=== PATIENT | male | born 1965 | race Caucasian/White ===

== ENCOUNTER 2017-02-26 19:56 | Emergency (ER) | payer SELFPAY ==
--- NOTE | 2017-02-26 20:09 | EDM.PDOC ---
ED HPI GENERAL MEDICAL PROBLEM - General Chief Complaint: Abdominal Pain Stated Complaint: NO BOWEL MOVEMENT IN A WEEK Time Seen by Provider: 02/26/17 20:04 - History of Present Illness INITIAL COMMENTS - FREE TEXT/NARRATIVE: HISTORY AND PHYSICAL: History of present illness: Patient is 51-year-old white male presents with a concern of constipation he states he's had 2 small bowel movements and last week he's had a similar problem in the past he also suffers from hemorrhoids he had 1 follow-up on his prior episode but then was lost to any more definitive coordination of care subsequent. He denies fever chills nausea vomiting no abdominal surgery he has had knee surgery prior. He denies pain medication he is a smoker denies drug or alcohol abuse Review of systems: As per history of present illness and below otherwise all systems reviewed and negative. Past medical history: As per history of present illness and as reviewed below otherwise noncontributory. Surgical history: As per history of present illness and as reviewed below otherwise noncontributory. Social history: No reported history of drug or alcohol abuse. Family history: As per history of present illness and as reviewed below otherwise noncontributory. Physical exam: HEENT: Atraumatic, normocephalic, pupils reactive, negative for conjunctival pallor or scleral icterus, mucous membranes moist, throat clear, neck supple, nontender, trachea midline. Lungs: Clear to auscultation, breath sounds equal bilaterally, chest nontender. Heart: S1S2, regular, negative for clicks, rubs, or JVD. Abdomen: Soft, nondistended, no localized tenderness. Negative for masses or hepatosplenomegaly. Negative for costovertebral tenderness. Pelvis: Stable nontender. Genitourinary: Deferred. Rectal: Deferred. Extremities: Atraumatic, negative for cords or calf pain. Neurovascular unremarkable. Neuro: Awake, alert, oriented. Cranial nerves II through XII unremarkable. Cerebellum unremarkable. Motor and sensory unremarkable throughout. Exam nonfocal. Diagnostics: Acute abdominal series CBC CMP Therapeutics: To be determined Impression: #1 constipation Definitive disposition and diagnosis as appropriate pending reevaluation and review of above. abdominal area Pain Score (Numeric/FACES): 4 - Related Data Allergies Allergy/AdvReac Type Severity Reaction Status Date / Time No Known Allergies Allergy Verified 02/26/17 19:59 Home Meds: Home Meds . [No Known Home Meds] 02/26/17 [History] Past Medical History HEENT History: Reports: None Cardiovascular History: Reports: None Respiratory History: Reports: None Gastrointestinal History: Reports: Other (See Below) Other Gastrointestinal History: Abdominal Blockage Genitourinary History: Reports: None Musculoskeletal History: Reports: None Neurological History: Reports: None Psychiatric History: Reports: None Endocrine/Metabolic History: Reports: None Hematologic History: Reports: None Immunologic History: Reports: None Oncologic (Cancer) History: Reports: None Dermatologic History: Reports: None - Infectious Disease History Infectious Disease History: Reports: Shingles - Past Surgical History Head Surgeries/Procedures: Reports: None Musculoskeletal Surgical History: Reports: Other (See Below) Other Musculoskeletal Surgeries/Procedures:: both knee Social & Family History - Family History Family Medical History: Noncontributory - Tobacco Use Smoking Status *Q: Current Every Day Smoker Years of Tobacco use: 30 Packs/Tins Daily: 1 - Caffeine Use Caffeine Use: Reports: Coffee - Recreational Drug Use Recreational Drug Use: Yes Drug Use in Last 12 Months: Yes Recreational Drug Type: Reports: Marijuana/Hashish ED ROS GENERAL - Review of Systems Review Of Systems: ROS reveals no pertinent complaints other than HPI. ED EXAM, GENERAL - Physical Exam Exam: See Below (See dictation) Course - Vital Signs Last Recorded V/S: Last Vital Signs Temp 36.1 C 02/26/17 20:00 Pulse 112 H 02/26/17 20:00 Resp 18 02/26/17 20:00 BP 120/90 02/26/17 20:00 Pulse Ox 98 02/26/17 20:00 - Orders/Labs/Meds Orders: Active Orders 24 hr Category Date Time Status Acute Abdomen Series [Abdomen 2V AP Upright Decub] [CR] Exams 02/26/17 20:11 Taken Stat Labs: Laboratory Tests 02/26/17 02/26/17 Range/Units 20:16 20:16 WBC 9.57 (4.0-11.0) K/uL RBC 4.59 (4.50-5.90) M/uL Hgb 14.7 (13.0-17.0) g/dL Hct 42.4 (38.0-50.0) % MCV 92.4 (80.0-98.0) fL MCH 32.0 (27.0-32.0) pg MCHC 34.7 (31.0-37.0) g/dL RDW Std Deviation 45.0 (28.0-62.0) fl RDW Coeff of Francois 13 (11.0-15.0) % Plt Count 381 (150-400) K/uL MPV 8.40 (7.40-12.00) fL Neut % (Auto) 50.8 (48.0-80.0) % Lymph % (Auto) 36.4 (16.0-40.0) % Cascade % (Auto) 9.4 (0.0-15.0) % Eos % (Auto) 2.9 (0.0-7.0) % Baso % (Auto) 0.5 (0.0-1.5) % Neut # (Auto) 4.9 (1.4-5.7) K/uL Lymph # (Auto) 3.5 H (0.6-2.4) K/uL Cascade # (Auto) 0.9 H (0.0-0.8) K/uL Eos # (Auto) 0.3 (0.0-0.7) K/uL Baso # (Auto) 0.1 (0.0-0.1) K/uL Nucleated RBC % 0.0 /100WBC Nucleated RBCs # 0 K/uL Sodium 139 (136-146) mmol/L Potassium 4.4 (3.5-5.1) mmol/L Chloride 105 (98-110) mmol/L Carbon Dioxide 25 (21-31) mmol/L BUN 15 (6.0-23.0) mg/dL Creatinine 1.1 (0.6-1.5) mg/dL Est Cr Clr Drug Dosing 80.19 mL/min Estimated GFR (MDRD) > 60.0 ml/min Glucose 116 H (60-110) mg/dL Calcium 11.1 H (8.8-10.8) mg/dL Total Bilirubin 0.3 (0.1-1.5) mg/dL AST 22 (5-40) IU/L ALT 25 (8-54) IU/L Alkaline Phosphatase 103 (40-150) Total Protein 7.6 (6.0-8.0) g/dL Albumin 4.2 (3.5-5.0) g/dL Globulin 3.4 (2.0-3.5) g/dL Albumin/Globulin Ratio 1.2 L (1.3-2.8) Departure - Departure Time of Disposition: 21:34 Disposition: Home, Self-Care 01 Condition: Good Clinical Impression: Constipation - Discharge Information Forms: ED Department Discharge Additional Instructions: The following information is given to patients seen in the emergency department who are being discharged to home. This information is to outline your options for follow-up care. We provide all patients seen in our emergency department with a follow-up referral. The need for follow-up, as well as the timing and circumstances, are variable depending upon the specifics of your emergency department visit. If you don't have a primary care physician on staff, we will provide you with a referral. We always advise you to contact your personal physician following an emergency department visit to inform them of the circumstance of the visit and for follow-up with them and/or the need for any referrals to a consulting specialist. The emergency department will also refer you to a specialist when appropriate. This referral assures that you have the opportunity for followup care with a specialist. All of these measure are taken in an effort to provide you with optimal care, which includes your followup. Under all circumstances we always encourage you to contact your private physician who remains a resource for coordinating your care. When calling for followup care, please make the office aware that this follow-up is from your recent emergency room visit. If for any reason you are refused follow-up, please contact the [facility] emergency department at and asked to speak to the emergency department charge nurse. [facility] Specialty Care - General Surgery Professional Building [address] [place] [address], [address] [place] [address] Push fluids clear liquids as discussed stool softener as directed fiber as directed follow primary medical doctor 1-2 days and return as needed as discussed routine surgery follow-up as needed as discussed - My Orders Last 24 Hours: My Active Orders 02/26/17 20:11 Acute Abdomen Series [Abdomen 2V AP Upright Decub] [CR] Stat - Assessment/Plan Last 24 Hours: My Active Orders 02/26/17 20:11 Acute Abdomen Series [Abdomen 2V AP Upright Decub] [CR] Stat
[2017-02-26 20:47] LABS: CHLORIDE,CL 105 mmol/L (98-110); SODIUM,NA 139 mmol/L (136-146)
[2017-02-26 22:02] VITALS: BP 119/93
--- NOTE | 2017-02-28 15:17 | CR ---
EXAM DATE: 02/26/17 PATIENT'S AGE: 51 Patient: GURVINDER RYDER Facility: [place], [place] Site . Site : 1965 Study: XRay Abdomen W PA CHEST [id number]/9/[id number] 8:38:08 PM Ordering Physician: Jorge Luis Hsu Final Report: INDICATION: ABDOMINAL PAIN AND CONSTIPATION FOR 7 DAYS TECHNIQUE: Chest radiograph 1 view Abdominal radiographs 4 views COMPARISON: None FINDINGS: CHEST: Cardiovascular and mediastinum: The heart silhouette is normal in size and morphology. The mediastinum is normal in appearance. Lungs and pleural spaces: There are several small nodules in the right lung base measuring up to 6 mm. No sign of pleural effusion seen. No pneumothorax is identified. Bones and soft tissues: No significant findings. ABDOMEN: The study is moderately limited by body habitus. Bowel: The bowel gas pattern is normal without evidence of bowel obstruction. Soft tissues: No evidence of pneumoperitoneum present. No sign of soft tissue mass seen. No suspicious calcifications noted. Bones: Unremarkable for age. IMPRESSIONS: 1. Unremarkable radiographs of the abdomen. 2. There are several small nodules in the right lung base measuring up to 6 mm. Dictated by: Lang Epperson MD @ 02/26/2017 21:18:28 (Electronic Signature) Report Signed by Proxy. RODRIGO
== END 2017-02-26 21:48 | disposition home or self-care (01) ==
LOC: MW.ED 19:56
DX: K59.00 Constipation, unspecified (principal); F17.210 Nicotine dependence, cigarettes, uncomplicated
CPT/HCPCS: 36415; 74022; 74022-26; 80053; 85025; 99282; 99283

== ENCOUNTER 2017-04-30 14:37 | Emergency (ER) | payer SELFPAY ==
[2017-04-30] MEDS ORDERED: Ketorolac 30 MG/ML SDV IVPUSH ONE (14:59)
[2017-04-30] MEDS ORDERED: Alum Hydrox/Mag Hydrox/Simeth 15 ML, Metoclopramide 5 MG, Lidocaine 2% 5 ML PO ONE ×3 (14:59)
[2017-04-30] MEDS ORDERED: Aspirin 81 MG Tab.Chew PO ONE (14:59)
[2017-04-30] MEDS ORDERED: Famotidine 20 MG/2 ML SDV IVPUSH ONE (14:59)
--- NOTE | 2017-04-30 15:29 | EDM.PDOC ---
ED HPI GENERAL MEDICAL PROBLEM - General Chief Complaint: General Stated Complaint: NECK PAIN Time Seen by Provider: 04/30/17 15:00 Source of Information: Reports: Patient History Limitations: Reports: No Limitations - History of Present Illness INITIAL COMMENTS - FREE TEXT/NARRATIVE: History of present illness: [51-year-old male comes in complaining of neck pain. As well as feeling that he is possibly stroking out according to his chiropractor. Patient indicates that this all originates from his neck radiating into his chest and makes him feel like he is going to vomit. Patient is hypertensive on presentation but the longer he stays in the ED for more his blood pressure just to midline.] Review of systems: As per history of present illness and below otherwise all systems reviewed and negative. Past medical history: As per history of present illness and as reviewed below otherwise noncontributory. Surgical history: As per history of present illness and as reviewed below otherwise noncontributory. Social history: No reported history of drug or alcohol abuse. Family history: As per history of present illness and as reviewed below otherwise noncontributory. Physical exam: HEENT: Atraumatic, normocephalic, pupils reactive, negative for conjunctival pallor or scleral icterus, mucous membranes moist, throat clear, neck supple, nontender, trachea midline. Lungs: Clear to auscultation, breath sounds equal bilaterally, chest nontender. Heart: S1S2, regular, negative for clicks, rubs, or JVD. Abdomen: Soft, nondistended, nontender. Negative for masses or hepatosplenomegaly. Negative for costovertebral tenderness. Pelvis: Stable nontender. Genitourinary: Deferred. Rectal: Deferred. Extremities: Atraumatic, negative for cords or calf pain. Neurovascular unremarkable. Neuro: Awake, alert, oriented. Cranial nerves II through XII unremarkable. Cerebellum unremarkable. Motor and sensory unremarkable throughout. Exam nonfocal. Assessment is benign save the subjective complaint as noted in history of present illness. Diagnostics: [X-ray of cervical spine, CBC, CMP, tox screen] Therapeutics: [] Impression: [#1 neck pain #2 polysubstance abuse] Plan: [Follow-up with PCP] Definitive disposition and diagnosis as appropriate pending reevaluation and review of above. Neck Pain Score (Numeric/FACES): 8 - Related Data Allergies Allergy/AdvReac Type Severity Reaction Status Date / Time No Known Allergies Allergy Verified 04/30/17 14:52 Home Meds: Home Meds . [No Known Home Meds] 02/26/17 [History] Past Medical History HEENT History: Reports: None Cardiovascular History: Reports: None Respiratory History: Reports: None Gastrointestinal History: Reports: Other (See Below) Other Gastrointestinal History: Abdominal Blockage Genitourinary History: Reports: None Musculoskeletal History: Reports: None Neurological History: Reports: None Psychiatric History: Reports: None Endocrine/Metabolic History: Reports: None Hematologic History: Reports: None Immunologic History: Reports: None Oncologic (Cancer) History: Reports: None Dermatologic History: Reports: None - Infectious Disease History Infectious Disease History: Reports: Shingles - Past Surgical History Head Surgeries/Procedures: Reports: None Musculoskeletal Surgical History: Reports: Other (See Below) Other Musculoskeletal Surgeries/Procedures:: both knee Social & Family History - Family History Family Medical History: Noncontributory - Tobacco Use Smoking Status *Q: Current Every Day Smoker Years of Tobacco use: 25 Packs/Tins Daily: 1 - Caffeine Use Caffeine Use: Reports: None - Recreational Drug Use Recreational Drug Use: Yes Drug Use in Last 12 Months: Yes Recreational Drug Type: Reports: Marijuana/Hashish Recreational Drug Use Frequency: Daily ED ROS GENERAL - Review of Systems Review Of Systems: See Below (See history of present illness) ED EXAM, GENERAL - Physical Exam Exam: See Below (See history of present illness) Course - Vital Signs Last Recorded V/S: Last Vital Signs Temp 36.4 C 04/30/17 14:47 Pulse 100 04/30/17 14:47 Resp 20 04/30/17 14:47 BP 119/86 04/30/17 14:53 Pulse Ox 97 04/30/17 14:47 - Orders/Labs/Meds Orders: Active Orders 24 hr Category Date Time Status EKG Documentation Completion [RC] STAT Care 04/30/17 14:59 Ordered Cervical Spine 2V or 3V [CR] Stat Exams 04/30/17 15:00 Ordered Chest 2V [CR] Stat Exams 04/30/17 14:59 Ordered AMYLASE [CHEM] Stat Lab 04/30/17 14:59 Ordered CBC WITH AUTO DIFF [HEME] Stat Lab 04/30/17 14:59 Ordered COMPREHENSIVE METABOLIC PN,CMP [CHEM] Stat Lab 04/30/17 14:59 Ordered LIPASE [CHEM] Stat Lab 04/30/17 14:59 Ordered TROPONIN I [CHEM] Stat Lab 04/30/17 14:59 Ordered Saline Lock Insert [OM.PC] Stat Oth 04/30/17 14:59 Ordered Meds: Medications Discontinued Medications Generic Name Dose Route Start Last Admin Trade Name Liss PRN Reason Stop Dose Admin Aspirin 324 mg 04/30/17 14:59 04/30/17 15:14 Aspirin PO 04/30/17 15:00 324 mg ONETIME ONE Administration Al Hydroxide/Mg Hydroxide 15 0 ml 04/30/17 14:59 ml/ Metoclopramide HCl 5 mg/ PO 04/30/17 15:00 Lidocaine HCl 5 ml ONETIME ONE Famotidine 20 mg 04/30/17 14:59 Pepcid IVPUSH 04/30/17 15:00 ONETIME ONE Ketorolac Tromethamine 30 mg 04/30/17 14:59 Toradol IVPUSH 04/30/17 15:00 ONETIME ONE Departure - Departure Time of Disposition: 17:02 Disposition: Home, Self-Care 01 Condition: Good Clinical Impression: Neck pain, Polysubstance abuse - Discharge Information Referrals: PCP,None [Primary Care Provider] - Additional Instructions: The following information is given to patients seen in the emergency department who are being discharged to home. This information is to outline your options for follow-up care. We provide all patients seen in our emergency department with a follow-up referral. The need for follow-up, as well as the timing and circumstances, are variable depending upon the specifics of your emergency department visit. we will provide you with a referral. We always advise you to contact your personal physician following an emergency department visit to inform them of the circumstance of the visit and for follow-up with them and/or the need for any referrals to a consulting specialist. The emergency department will also refer you to a specialist when appropriate. This referral assures that you have the opportunity for follow-up care with a specialist. All of these measure are taken in an effort to provide you with optimal care, which includes your follow-up. Under all circumstances we always encourage you to contact your private physician who remains a resource for coordinating your care. When calling for follow-up care, please make the office aware that this follow-up is from your recent emergency room visit. If for any reason you are refused follow-up, please contact the [facility] Emergency Department at and asked to speak to the emergency department charge nurse. Follow-up PCP 1-2 days Return to ED as needed as discussed Stop taking drugs - My Orders Last 24 Hours: My Active Orders 04/30/17 14:59 EKG Documentation Completion [RC] STAT Chest 2V [CR] Stat AMYLASE [CHEM] Stat CBC WITH AUTO DIFF [HEME] Stat COMPREHENSIVE METABOLIC PN,CMP [CHEM] Stat LIPASE [CHEM] Stat TROPONIN I [CHEM] Stat Saline Lock Insert [OM.PC] Stat 04/30/17 15:00 Cervical Spine 2V or 3V [CR] Stat - Assessment/Plan Last 24 Hours: My Active Orders 04/30/17 14:59 EKG Documentation Completion [RC] STAT Chest 2V [CR] Stat AMYLASE [CHEM] Stat CBC WITH AUTO DIFF [HEME] Stat COMPREHENSIVE METABOLIC PN,CMP [CHEM] Stat LIPASE [CHEM] Stat TROPONIN I [CHEM] Stat Saline Lock Insert [OM.PC] Stat 04/30/17 15:00 Cervical Spine 2V or 3V [CR] Stat
[2017-04-30 15:38] LABS: CHLORIDE,CL 103 mmol/L (98-110); SODIUM,NA 136 mmol/L (136-146)
[2017-04-30] MEDS ORDERED: Sodium Chloride 0.9% 1,000 ML IV ONE (15:44)
[2017-04-30 17:16] VITALS: BP 155/100
--- NOTE | 2017-05-02 12:22 | CR ---
EXAM DATE: 04/30/17 PATIENT'S AGE: 51 Patient: GURVINDER RYDER Facility: [place], [place] Site . Site : 1965 Study: XRay Chest [id number]/11/2017 3:29:09 PM Ordering Physician: Doctor Meyer Final Report: INDICATION: Pain TECHNIQUE: Two view chest. FINDINGS: The lungs are clear. The heart, mediastinum and pulmonary vessels are of normal size. There is no evidence of pleural disease. IMPRESSION: Negative chest. Dictated by Cheryle Alcazar MD @ Apr 30 2017 3:53PM (Electronic Signature) Report Signed by Proxy. RODRIGO
--- NOTE | 2017-05-02 12:24 | CR ---
EXAM DATE: 04/30/17 PATIENT'S AGE: 51 Patient: GURVINDER RYDER Facility: [place], [place] Site . Site : 1965 Study: XRay Spine Cervical [id number]/11/2017 3:37:09 PM Ordering Physician: Doctor Meyer Final Report: HISTORY: Neck pain. TECHNIQUE: Four views of the cervical spine. COMPARISON: No prior. FINDINGS: The lower aspect of the cervical spine is not well seen secondary to overlap the shoulders and despite a swimmer`s projection. The cervical vertebral body height within the visualized portion of the cervical spine is maintained. There is loss of intervertebral disc height at C3-C4 with slight posterior listhesis of C3 on C4. Degenerative disc disease at that level. The dens appears intact. Normal articulation of lateral masses of C1 and C2. No abnormal prevertebral soft tissue swelling. IMPRESSION: 1. The lower cervical spine, specifically the C6 and C7 levels, are poorly evaluated secondary to soft tissue overlap from the shoulders and despite a swimmer`s projection. If lower cervical pathology is suspected based on physical examination findings, CT could be obtained for further evaluation. 2. No acute fracture within the visualized portion of the mid to upper cervical spine. 3. Degenerative changes. Dictated by Hema Lee MD @ 04/30/2017 3:58:58 PM Dictated by: Hema Lee MD @ 04/30/2017 15:59:06 (Electronic Signature) Report Signed by Proxy. RODRIGO
== END 2017-04-30 17:14 | disposition home or self-care (01) ==
LOC: MW.ED 14:37
DX: M54.2 Cervicalgia (principal); F19.10 Other psychoactive substance abuse, uncomplicated; F17.210 Nicotine dependence, cigarettes, uncomplicated
CPT/HCPCS: 36415; 71020; 72040; 80053; 80305; 82150; 83690; 84484; 85025; 93005; 96361; 96374; 96375; 99284; A9270; J1885; J7040; 99283

== ENCOUNTER 2019-06-27 16:50 | Observation (INO) | payer OTHER ==
[2019-06-27] MEDS ORDERED: Isosorbide Mononitrate 60 MG Tab.ER PO SCH (17:45)
[2019-06-27] MEDS ORDERED: Albuterol/Ipratropium 3.0-0.5 MG/3 ML Neb Soln NEB PRN (17:50)
[2019-06-27] MEDS ORDERED: Heparin Sodium 5,000 Units/ML Vial IVPUSH SCH (18:00)
[2019-06-27] MEDS ORDERED: Furosemide 40 MG/4 ML VIAL IVPUSH SCH (18:00)
--- NOTE | 2019-06-27 18:05 | PCM.HP.2 ---
<Norma Pettit - Last Filed: 06/29/19 14:20> H&P History of Present Illness - General Date of Service: 06/27/19 Admit Problem/Dx: Admission Diagnosis/Problem Admission Diagnosis/Problem Heart failure due to high blood pressure Source of Information: Patient History Limitations: Reports: No Limitations - History of Present Illness Initial Comments - Free Text/Narative: Pt. is a 53-year-old male with a significant past medical history of uncontrolled hypertension on numerous medications, tobacco abuse x30 years, obesity: Presenting to medical floor as a direct admission secondary to concerns for congestive heart failure. He was initially seen in outpatient cardiology for worsening hypertension and increasing shortness of breath with rest and lower extremity swelling .patient for the past 6 months endorses increasing shortness of breath; mentioning not being able to walk more than 1-2 blocks before developing shortness of breath with sweating; and over the past 2 to 3 months has noticed increased swelling of the face, abdomen and most notably in the lower extremities. Patient currently denies any fevers, chills, body aches, chest pain; but does endorse some mild shortness of breath at rest. Patient denies any diarrhea but mentions having some constipation; endorses a bowel movement this morning but states constipation has been an ongoing issue and he has been seen in the ER for this. Patient endorses compliance with his medications for the most part; and has been trying to cut down on the amount of tobacco use. 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 Denies any other overt or acute symptomatology at this time. - Related Data Allergies/Adverse Reactions: Allergies Allergy/AdvReac Type Severity Reaction Status Date / Time No Known Allergies Allergy Verified 06/27/19 17:25 Home Medications: Home Meds Albuterol Sulfate [Proair Hfa] 8.5 gm IH Q4H PRN 14 Days #1 [email or web address] 06/30/19 [Rx] Furosemide [Lasix] 40 mg PO BID 30 Days #60 tab 06/30/19 [Rx] Isosorbide Mononitrate [Imdur] 30 mg PO DAILY 30 Days #30 tab.er 06/30/19 [Rx] Magnesium Oxide [Magnesium] 200 mg PO DAILY 10 Days #10 tab.chew 06/30/19 [Rx] Pantoprazole [ProTONIX] 40 mg PO DAILY 14 Days #14 tab.cr 06/30/19 [Rx] Valsartan 320 mg PO DAILY 30 Days #30 tablet 06/30/19 [Rx] Past Medical History HEENT History: Reports: None Cardiovascular History: Reports: None Respiratory History: Reports: SOB Gastrointestinal History: Reports: None, Other (See Below) Other Gastrointestinal History: Abdominal Blockage Genitourinary History: Reports: None Musculoskeletal History: Reports: None Neurological History: Reports: None Psychiatric History: Reports: Addiction, Depression Other Psychiatric History: Year ago when this stared. Endocrine/Metabolic History: Reports: None Hematologic History: Reports: None Immunologic History: Reports: None Oncologic (Cancer) History: Reports: None Dermatologic History: Reports: None - Infectious Disease History Infectious Disease History: Reports: Measles, Shingles - Past Surgical History Head Surgeries/Procedures: Reports: None HEENT Surgical History: Reports: None Cardiovascular Surgical History: Reports: None Respiratory Surgical History: Reports: None GI Surgical History: Reports: None Male Surgical History: Reports: None Neurological Surgical History: Reports: None Musculoskeletal Surgical History: Reports: None, Other (See Below) Other Musculoskeletal Surgeries/Procedures:: both knee ACL Oncologic Surgical History: Reports: None Social & Family History - Family History Family Medical History: Noncontributory - Tobacco Use Smoking Status *Q: Current Every Day Smoker Years of Tobacco use: 30 Packs/Tins Daily: 1 Used Tobacco, but Quit: No Second Hand Smoke Exposure: No - Caffeine Use Caffeine Use: Reports: Coffee, Tea - Recreational Drug Use Recreational Drug Use: Yes Drug Use in Last 12 Months: Yes Recreational Drug Type: Reports: Cocaine, Marijuana/Hashish, Methamphetamine Recreational Drug Use Frequency: Daily Recreational Drug Last Use: 06/27/2019 H&P Review of Systems - Review of Systems: Review Of Systems: See Below General: Reports: Weight Gain. Denies: Fever, Chills, Malaise, Fatigue, Diaphoresis HEENT: Reports: No Symptoms Pulmonary: Reports: Shortness of Breath, Cough. Denies: Wheezing, Pleuritic Chest Pain, Sputum, Hemoptysis Cardiovascular: Reports: Dyspnea on Exertion, Edema, Blood Pressure Problem. Denies: Chest Pain, Palpitations, Orthopnea, Lightheadedness, Syncope Gastrointestinal: Reports: Constipation. Denies: Abdominal Pain, Diarrhea, Decreased Appetite, Nausea, Vomiting Genitourinary: Denies: Dysuria, Frequency, Burning, Pain, Urgency Musculoskeletal: Reports: No Symptoms Skin: Reports: No Symptoms. Denies: Rash Psychiatric: Denies: Confusion, Anxiety Neurological: Denies: Confusion, Dizziness, Headache, Syncope Exam - Exam Exam: See Below - Vital Signs Weight: 99 kg - Exam General: Alert, Oriented, Cooperative HEENT: EOMI, Posterior Pharynx Clear Neck: Supple, Trachea Midline Lungs: Other (crackles at bases b/l; faint wheeze in left upper lung field ) Cardiovascular: Regular Rhythm, Tachycardia, Other (minimal JVD appreciated ) GI/Abdominal Exam: Soft, Non-Tender, Other (no fluid wave appreciated ) (Male) Exam: Circumcised. No: Rash, Scrotal Swelling Back Exam: No: CVA Tenderness (L), CVA Tenderness (R) Extremities: Normal Range of Motion, Non-Tender, Other (+3/4 pitting edema extending to just below knees b/l ; no tenderness, no skin breakdown. ) Skin: Warm, Dry Neuro Extensive - Mental Status: Alert, Oriented x3, Normal Mood/Affect Neuro Extensive - Motor, Sensory, Reflexes: CN II-XII Intact Psychiatric: Alert, Normal Mood - Patient Data Result Diagrams: 06/29/19 08:11 06/29/19 08:11 Sepsis Event Note - Evaluation Sepsis Screening Result: No Definite Risk Problem List Initiated/Reviewed/Updated: Yes Orders Last 24hrs: Active Orders 24 hr Category Date Time Status Admission Status [Patient Status] [ADT] Routine ADT 06/27/19 17:34 Active Daily Weight [Height and Weight] [] DAILY Care 06/27/19 17:48 Active EKG 12 Lead [EKG Documentation Completion] [RC] URGENT Care 06/27/19 17:33 Active Intake and Output Strict [RC] ASDIRECTED Care 06/27/19 17:48 Active RT Aerosol Therapy [RC] ASDIRECTED Care 06/27/19 17:50 Active Up ad Lucy [RC] ASDIRECTED Care 06/27/19 17:31 Active Fluid Restriction [DIET] Diet 06/28/19 Breakfast Active Sodium Restricted Diet [DIET] Diet 06/28/19 Breakfast Active Echo Comp wo Cont [US] Urgent Exams 06/27/19 17:31 Ordered B-TYPE NATRIURETIC PEPTIDE,BNP [CHEM] AM Lab 06/28/19 05:11 Ordered CBC WITH AUTO DIFF [HEME] AM Lab 06/28/19 05:11 Ordered COMPREHENSIVE METABOLIC PN,CMP [CHEM] AM Lab 06/28/19 05:11 Ordered GLYCOSYLATED HEMOGLOBIN,HGBA1C [CHEM] Routine Lab 06/27/19 14:52 Received MAGNESIUM [CHEM] Routine Lab 06/27/19 14:52 Received TROPONIN I [CHEM] Q3H Lab 06/27/19 17:33 Ordered TROPONIN I [CHEM] Q3H Lab 06/27/19 20:33 Ordered TROPONIN I [CHEM] Q3H Lab 06/27/19 23:33 Ordered Albuterol/Ipratropium [DuoNeb 3.0-0.5 MG/3 ML] Med 06/27/19 17:50 Active 3 ml NEB Q4HRRT PRN Furosemide [Lasix] Med 06/27/19 18:00 Ordered 40 mg IVPUSH BID Heparin Sodium Med 06/27/19 18:00 Ordered 5,000 units IVPUSH Q8H Isosorbide Mononitrate [Imdur] Med 06/27/19 18:00 Active 30 mg PO DAILY Pantoprazole [ProTONIX] Med 06/27/19 18:00 Ordered 40 mg PO DAILY Valsartan [Diovan] Med 06/28/19 07:00 Ordered 320 mg PO DAILY Code Status [Resuscitation Status] Routine Resus Stat 06/27/19 17:30 Ordered Medication Orders Albuterol/Ipratropium (Duoneb 3.0-0.5 Mg/3 Ml) 3 ml NEB Q4HRRT PRN PRN Reason: Shortness of Breath Furosemide (Lasix) 40 mg IVPUSH BID@0800,1800 JOSUE Heparin Sodium (Porcine) (Heparin Sodium) 5,000 units IVPUSH Q8H JOSUE Isosorbide Mononitrate (Imdur) 30 mg PO DAILY JOSUE Pantoprazole Sodium (Protonix) 40 mg PO DAILY JOSUE Valsartan (Diovan) 320 mg PO DAILY JOSUE Assessment/Plan Comment:: Assessment: 1. Congestive heart failure in the setting of uncontrolled hypertension ( elevated BNP) 2. Uncontrolled hypertension 3. Tobacco abuse 4. Hypomagnesemia 5. Elevated A1c of 6.4; monitor w/ glucose checks 6. Elevated Creatinine Plan Admit to observation. Full code. Activity; up ad lucy. strict I's and O's. Fluid restricted with low-sodium diet. Daily weights. DVT prophylaxis: Heparin. GI prophylaxis; pantoprazole 40. Telemetry. 1. Congestive heart failure: Lasix 40 IV twice daily; will adjust accordingly. Imdur 30 mg daily. Valsartan:320 daily. HOLD All home medications at this time. (Patient has been off his Viagra for many years). Strict I's and O's/ fluid restrictions Heart failure assessment: Echocardiogram ordered. EKG ordered. Troponin x3 ordered 2. HTN: Valsartan 320 daily. Add on Imdur 30 mg daily; continue to monitor pressures. Patient is also on telemetry. 3. Hypomagnesemia: 2 g IV. 4. Concern for DM; will monitor for now w. BG 5. Elevated Cr: monitor daily w/ CMP; will possibly need to increase Lasix if UOP non-satisfactory. 6. Macrocytic anemia: monitor for now; will address accordingly/ Patient understood plan. We will adjust medical therapy as needed. <Royer Lam - Last Filed: 07/02/19 20:48> H&P History of Present Illness - General Admit Problem/Dx: Admission Diagnosis/Problem Admission Diagnosis/Problem Heart failure due to high blood pressure Exam - Vital Signs Vital Signs: Last Vital Signs Temp 35.8 C 06/30/19 13:22 Pulse 103 H 06/30/19 13:22 Resp 18 06/30/19 13:22 BP 145/104 H 06/30/19 13:22 Pulse Ox 99 06/30/19 13:22 - Patient Data Result Diagrams: 06/30/19 06:13 06/30/19 06:13 Assessment/Plan Comment:: I performed a history and physical exam of the patient and discussed management with resident. I have reviewed the residents note and agree with documented findings and plan unless otherwise specified in my note.
[2019-06-27] MEDS: Isosorbide Mononitrate 60 MG Tab.ER PO SCH (18:08)
[2019-06-27] MEDS: Furosemide 40 MG/4 ML VIAL IVPUSH SCH (18:09)
[2019-06-27] MEDS ORDERED: Magnesium Sulfate/Water 2 GM in Premix Bag 1 BAG IV ONE (18:27)
[2019-06-27 18:35] LABS: HEMOGLOBIN A1C 6.4 % (4.5-6.2)
[2019-06-27] MEDS: Pantoprazole 40 MG Tab.CR PO SCH (18:54)
[2019-06-27] MEDS: Heparin Sodium 5,000 Units/ML Vial SUBCUT SCH (20:26)
[2019-06-28] MEDS: Heparin Sodium 5,000 Units/ML Vial SUBCUT SCH ×3 (03:33→21:14)
[2019-06-28 06:14] LABS: CARBON DIOXIDE,CO2 29.8 mmol/L (21.0-32.0); POTASSIUM,K 4.2 mmol/L (3.5-5.1)
[2019-06-28] MEDS: Furosemide 40 MG/4 ML VIAL IVPUSH SCH ×2 (09:07→17:31)
[2019-06-28] MEDS: Isosorbide Mononitrate 60 MG Tab.ER PO SCH (09:08)
[2019-06-28] MEDS: Pantoprazole 40 MG Tab.CR PO SCH (09:10)
[2019-06-28] MEDS ORDERED: Magnesium Sulfate/Water 2 GM in Premix Bag 1 BAG IV ONE (09:35)
--- NOTE | 2019-06-28 09:39 | PCM.PN ---
<Norma Pettit - Last Filed: 06/28/19 12:42> - General Info Date of Service: 06/28/19 Subjective Update: Denies any pain. States having a dry cough but no real discomfort; mentions feeling tired from not sleeping last night. Functional Status: Reports: Pain Controlled - Review of Systems General: Denies: Fever, Weakness, Fatigue HEENT: Reports: Post Nasal Drip, Sinus Congestion Pulmonary: Reports: Cough. Denies: Shortness of Breath, Sputum, Wheezing Cardiovascular: Reports: Dyspnea on Exertion, Edema. Denies: Chest Pain, Palpitations Gastrointestinal: Reports: Constipation. Denies: Abdominal Pain, Diarrhea, Nausea, Vomiting Genitourinary: Reports: No Symptoms Musculoskeletal: Reports: No Symptoms Neurological: Denies: Confusion, Dizziness, Headache Psychiatric: Reports: No Symptoms - Patient Data Vitals - Most Recent: Last Vital Signs Temp 97.9 F 06/28/19 07:00 Pulse 108 H 06/28/19 07:00 Resp 18 06/28/19 07:00 BP 142/97 H 06/28/19 09:10 Pulse Ox 93 L 06/28/19 07:00 Weight - Most Recent: 96.57 kg I&O - Last 24 Hours: Intake & Output 06/27/19 06/28/19 06/28/19 22:59 06:59 14:59 Intake Total 50 750 Output Total 2100 Balance 50 -1350 Lab Results Last 24 Hours: Laboratory Results - last 24 hr 06/27/19 06/27/19 06/27/19 Range/Units 14:52 14:52 18:05 WBC (4.0-11.0) K/uL RBC (4.50-5.90) M/uL Hgb (13.0-17.0) g/dL Hct (38.0-50.0) % MCV (80.0-98.0) fL MCH (27.0-32.0) pg MCHC (31.0-37.0) g/dL RDW Std Deviation (28.0-62.0) fl RDW Coeff of Francois (11.0-15.0) % Plt Count (150-400) K/uL MPV (7.40-12.00) fL Neut % (Auto) (48.0-80.0) % Lymph % (Auto) (16.0-40.0) % Coles % (Auto) (0.0-15.0) % Eos % (Auto) (0.0-7.0) % Baso % (Auto) (0.0-1.5) % Neut # (Auto) (1.4-5.7) K/uL Lymph # (Auto) (0.6-2.4) K/uL Coles # (Auto) (0.0-0.8) K/uL Eos # (Auto) (0.0-0.7) K/uL Baso # (Auto) (0.0-0.1) K/uL Nucleated RBC % /100WBC Nucleated RBCs # K/uL Sodium (136-148) mmol/L Potassium (3.5-5.1) mmol/L Chloride (98-107) mmol/L Carbon Dioxide (21.0-32.0) mmol/L BUN (7.0-18.0) mg/dL Creatinine (0.8-1.3) mg/dL Est Cr Clr Drug Dosing mL/min Estimated GFR (MDRD) ml/min Glucose (74-106) mg/dL Hemoglobin A1c 6.4 H (4.5-6.2) % Calcium (8.5-10.1) mg/dL Magnesium 1.4 L (1.8-2.4) mg/dL Total Bilirubin (0.2-1.0) mg/dL AST (15-37) IU/L ALT (14-63) IU/L Alkaline Phosphatase (46-116) U/L Troponin I < 0.050 (0.000-0.056) ng/mL B-Natriuretic Peptide (<100) PG/ML Total Protein (6.4-8.2) g/dL Albumin (3.4-5.0) g/dL Globulin (2.6-4.0) g/dL Albumin/Globulin Ratio (0.9-1.6) 06/27/19 06/27/19 06/28/19 Range/Units 20:34 23:26 05:32 WBC 6.59 (4.0-11.0) K/uL RBC 5.11 (4.50-5.90) M/uL Hgb 17.4 H (13.0-17.0) g/dL Hct 50.2 H (38.0-50.0) % MCV 98.2 H (80.0-98.0) fL MCH 34.1 H (27.0-32.0) pg MCHC 34.7 (31.0-37.0) g/dL RDW Std Deviation 55.4 (28.0-62.0) fl RDW Coeff of Francois 16 H (11.0-15.0) % Plt Count 157 (150-400) K/uL MPV 10.40 (7.40-12.00) fL Neut % (Auto) 47.1 L (48.0-80.0) % Lymph % (Auto) 34.1 (16.0-40.0) % Coles % (Auto) 15.8 H (0.0-15.0) % Eos % (Auto) 2.1 (0.0-7.0) % Baso % (Auto) 0.9 (0.0-1.5) % Neut # (Auto) 3.1 (1.4-5.7) K/uL Lymph # (Auto) 2.3 (0.6-2.4) K/uL Coles # (Auto) 1.0 H (0.0-0.8) K/uL Eos # (Auto) 0.1 (0.0-0.7) K/uL Baso # (Auto) 0.1 (0.0-0.1) K/uL Nucleated RBC % 1.8 /100WBC Nucleated RBCs # 0 K/uL Sodium (136-148) mmol/L Potassium (3.5-5.1) mmol/L Chloride (98-107) mmol/L Carbon Dioxide (21.0-32.0) mmol/L BUN (7.0-18.0) mg/dL Creatinine (0.8-1.3) mg/dL Est Cr Clr Drug Dosing mL/min Estimated GFR (MDRD) ml/min Glucose (74-106) mg/dL Hemoglobin A1c (4.5-6.2) % Calcium (8.5-10.1) mg/dL Magnesium (1.8-2.4) mg/dL Total Bilirubin (0.2-1.0) mg/dL AST (15-37) IU/L ALT (14-63) IU/L Alkaline Phosphatase (46-116) U/L Troponin I < 0.050 < 0.050 (0.000-0.056) ng/mL B-Natriuretic Peptide (<100) PG/ML Total Protein (6.4-8.2) g/dL Albumin (3.4-5.0) g/dL Globulin (2.6-4.0) g/dL Albumin/Globulin Ratio (0.9-1.6) 06/28/19 06/28/19 06/28/19 Range/Units 05:32 05:32 05:32 WBC (4.0-11.0) K/uL RBC (4.50-5.90) M/uL Hgb (13.0-17.0) g/dL Hct (38.0-50.0) % MCV (80.0-98.0) fL MCH (27.0-32.0) pg MCHC (31.0-37.0) g/dL RDW Std Deviation (28.0-62.0) fl RDW Coeff of Francois (11.0-15.0) % Plt Count (150-400) K/uL MPV (7.40-12.00) fL Neut % (Auto) (48.0-80.0) % Lymph % (Auto) (16.0-40.0) % Coles % (Auto) (0.0-15.0) % Eos % (Auto) (0.0-7.0) % Baso % (Auto) (0.0-1.5) % Neut # (Auto) (1.4-5.7) K/uL Lymph # (Auto) (0.6-2.4) K/uL Coles # (Auto) (0.0-0.8) K/uL Eos # (Auto) (0.0-0.7) K/uL Baso # (Auto) (0.0-0.1) K/uL Nucleated RBC % /100WBC Nucleated RBCs # K/uL Sodium 143 (136-148) mmol/L Potassium 4.2 (3.5-5.1) mmol/L Chloride 105 (98-107) mmol/L Carbon Dioxide 29.8 (21.0-32.0) mmol/L BUN 27 H (7.0-18.0) mg/dL Creatinine 1.4 H (0.8-1.3) mg/dL Est Cr Clr Drug Dosing 61.56 mL/min Estimated GFR (MDRD) 52.6 ml/min Glucose 102 (74-106) mg/dL Hemoglobin A1c (4.5-6.2) % Calcium 10.5 H (8.5-10.1) mg/dL Magnesium 1.5 L (1.8-2.4) mg/dL Total Bilirubin 2.2 H (0.2-1.0) mg/dL AST 41 H (15-37) IU/L ALT 36 (14-63) IU/L Alkaline Phosphatase 131 H (46-116) U/L Troponin I (0.000-0.056) ng/mL B-Natriuretic Peptide 945 H (<100) PG/ML Total Protein 6.6 (6.4-8.2) g/dL Albumin 3.2 L (3.4-5.0) g/dL Globulin 3.4 (2.6-4.0) g/dL Albumin/Globulin Ratio 0.9 (0.9-1.6) Med Orders - Current: Current Medications Albuterol/Ipratropium (Duoneb 3.0-0.5 Mg/3 Ml) 3 ml NEB Q4HRRT PRN PRN Reason: Shortness of Breath Last Admin: 06/28/19 09:25 Dose: 3 ml Furosemide (Lasix) 40 mg IVPUSH BID@0800,1800 [facility] Last Admin: 06/28/19 09:07 Dose: 40 mg Heparin Sodium (Porcine) (Heparin Sodium) 5,000 units SUBCUT Q8H [facility] Last Admin: 06/28/19 03:33 Dose: 5,000 units Magnesium Sulfate 2 gm/ Premix 50 mls @ 25 mls/hr IV ONETIME ONE Stop: 06/28/19 11:34 Isosorbide Mononitrate (Imdur) 30 mg PO DAILY [facility] Last Admin: 06/28/19 09:08 Dose: 30 mg Pantoprazole Sodium (Protonix) 40 mg PO DAILY [facility] Last Admin: 06/28/19 09:10 Dose: 40 mg Valsartan (Diovan) 320 mg PO DAILY [facility] Last Admin: 06/28/19 09:10 Dose: 320 mg Discontinued Medications Furosemide (Lasix) 40 mg IVPUSH NOW [facility] Heparin Sodium (Porcine) (Heparin Sodium) 5,000 units IVPUSH Q8H [facility] Last Admin: 06/27/19 21:08 Dose: Not Given Magnesium Sulfate 2 gm/ Premix 50 mls @ 25 mls/hr IV ONETIME ONE Stop: 06/27/19 20:26 Last Admin: 06/27/19 18:53 Dose: 25 mls/hr Isosorbide Mononitrate (Imdur) 60 mg PO DAILY [facility] Last Admin: 06/27/19 18:16 Dose: Not Given - Exam Quality Assessment: No: Supplemental Oxygen General: Alert, Oriented, Cooperative, No Acute Distress HEENT: EOMI, Mucous Membr. Moist/[place] Neck: Supple Lungs: Other (faint crackles w. mild expiratory wheeze ) Cardiovascular: Regular Rate, Regular Rhythm GI/Abdominal Exam: Soft, Non-Tender, Other (no fluid wave ) Extremities: Other (+3/4 pitting edema ) Skin: Warm, Dry Psy/Mental Status: Alert, Normal Affect, Normal Mood Sepsis Event Note - Evaluation Sepsis Screening Result: No Definite Risk - Focused Exam Vital Signs: Vital Signs Temp Pulse Resp BP BP Pulse Ox 06/28/19 09:10 142/97 H 06/28/19 07:00 97.9 F 108 H 18 142/97 H 93 L 06/28/19 06:25 105/82 06/28/19 04:00 97.0 F 108 H 17 105/82 97 06/27/19 23:49 97.0 F 111 H 16 113/72 94 L Date Exam was Performed: 06/28/19 Time Exam was Performed: 12:42 - Problem List Review Problem List Initiated/Reviewed/Updated: Yes - My Orders Last 24 Hours: My Active Orders 06/27/19 17:30 Code Status [Resuscitation Status] Routine 06/27/19 17:31 Up ad Lucy [RC] ASDIRECTED 06/27/19 17:34 Admission Status [Patient Status] [ADT] Routine 06/27/19 17:48 Daily Weight [Height and Weight] [RC] DAILY Intake and Output Strict [RC] Q12H 06/27/19 17:50 RT Aerosol Therapy [RC] ASDIRECTED Albuterol/Ipratropium [DuoNeb 3.0-0.5 MG/3 ML] 3 ml NEB Q4HRRT PRN 06/27/19 18:00 Furosemide [Lasix] 40 mg IVPUSH BID@0800,1800 Isosorbide Mononitrate [Imdur] 30 mg PO DAILY Pantoprazole [ProTONIX] 40 mg PO DAILY 06/27/19 19:25 Antiembolic Devices [RC] PER UNIT ROUTINE SCD [Sequential Compression Device] [OM.PC] Routine 06/28/19 Echo Comp wo Cont [US] Urgent 06/28/19 07:00 Valsartan [Diovan] 320 mg PO DAILY 06/28/19 09:35 Magnesium Sulfate/Water [Magnesium Sulfate in Water Premix] 2 gm Premix Bag 1 bag IV ONETIME 06/28/19 Breakfast Fluid Restriction [DIET] Sodium Restricted Diet [DIET] - Plan Plan:: Assessment: 1. Congestive heart failure in the setting of uncontrolled hypertension ( elevated BNP) 2. Uncontrolled hypertension 3. Tobacco abuse 4. Hypomagnesemia 5. Elevated A1c of 6.4; monitor w/ glucose checks 6. Elevated Creatinine Plan Admit to observation. Full code. Activity; up ad lucy. strict I's and O's. Fluid restricted with low-sodium diet. Daily weights. DVT prophylaxis: Heparin. GI prophylaxis; pantoprazole 40. Telemetry. 1. Congestive heart failure: Lasix 40 IV twice daily; will adjust accordingly. Imdur 60 mg daily. Valsartan:320 daily. HOLD All home medications at this time. (Patient has been off his Viagra for many years). Strict I's and O's/ fluid restrictions Heart failure assessment: Echocardiogram ordered: concerns for right heart strain; will continue to assess lung function today with CT angio 2. HTN: Valsartan 320 daily. Add on Imdur 30 mg daily; continue to monitor pressures. Patient is also on telemetry. 3. Hypomagnesemia: 2 g IV. 4. Concern for DM; will monitor for now w. BG 5. Elevated Cr: monitor daily w/ CMP; will possibly need to increase Lasix if UOP non-satisfactory. UOP: satisfactory today w. some resolution of l/e edema 6. Macrocytic anemia: monitor for now; will address accordingly/ Patient understood plan. We will adjust medical therapy as needed. <Royer Lam - Last Filed: 07/02/19 20:48> - Patient Data Vitals - Most Recent: Last Vital Signs Temp 35.8 C 06/30/19 13:22 Pulse 103 H 06/30/19 13:22 Resp 18 06/30/19 13:22 BP 145/104 H 06/30/19 13:22 Pulse Ox 99 06/30/19 13:22 Med Orders - Current: Current Medications Discontinued Medications Acetaminophen (Tylenol) 650 mg PO Q6H PRN PRN Reason: Pain Last Admin: 06/30/19 14:01 Dose: 650 mg Albuterol/Ipratropium (Duoneb 3.0-0.5 Mg/3 Ml) 3 ml NEB Q4HRRT PRN PRN Reason: Shortness of Breath Last Admin: 06/28/19 09:25 Dose: 3 ml Docusate Sodium (Colace) 100 mg PO BID [facility] Last Admin: 06/30/19 08:19 Dose: 100 mg Docusate Sodium (Colace) 100 mg PO DAILY PRN PRN Reason: Constipation Furosemide (Lasix) 40 mg IVPUSH NOW [facility] Furosemide (Lasix) 40 mg IVPUSH BID@0800,1800 [facility] Last Admin: 06/30/19 08:19 Dose: 40 mg Furosemide (Lasix) 40 mg IVPUSH ONETIME ONE Stop: 06/30/19 14:01 Last Admin: 06/30/19 13:58 Dose: 40 mg Heparin Sodium (Porcine) (Heparin Sodium) 5,000 units IVPUSH Q8H [facility] Last Admin: 06/27/19 21:08 Dose: Not Given Heparin Sodium (Porcine) (Heparin Sodium) 5,000 units SUBCUT Q8H [facility] Last Admin: 06/30/19 12:38 Dose: 5,000 units Magnesium Sulfate 2 gm/ Premix 50 mls @ 25 mls/hr IV ONETIME ONE Stop: 06/27/19 20:26 Last Admin: 06/27/19 18:53 Dose: 25 mls/hr Magnesium Sulfate 2 gm/ Premix 50 mls @ 25 mls/hr IV ONETIME ONE Stop: 06/28/19 11:34 Last Admin: 06/28/19 10:25 Dose: 25 mls/hr Magnesium Sulfate 2 gm/ Premix 50 mls @ 25 mls/hr IV ONETIME ONE Stop: 06/30/19 09:43 Last Admin: 06/30/19 08:20 Dose: 25 mls/hr Iopamidol (Isovue Multipack-370 (76%)) 100 ml IVPUSH ONETIME STA Stop: 06/28/19 18:05 Last Admin: 06/28/19 18:05 Dose: 50 ml Isosorbide Mononitrate (Imdur) 60 mg PO DAILY [facility] Last Admin: 06/27/19 18:16 Dose: Not Given Isosorbide Mononitrate (Imdur) 30 mg PO DAILY [facility] Last Admin: 06/28/19 09:08 Dose: 30 mg Isosorbide Mononitrate (Imdur) 60 mg PO DAILY [facility] Last Admin: 06/30/19 08:19 Dose: 60 mg Melatonin (Melatonin) 3 mg PO BEDTIME [facility] Last Admin: 06/29/19 20:30 Dose: 3 mg Nicotine (Habitrol) 14 mg TRDERM DAILY [facility] Last Admin: 06/30/19 08:19 Dose: 14 mg Pantoprazole Sodium (Protonix) 40 mg PO DAILY [facility] Last Admin: 06/30/19 08:19 Dose: 40 mg Potassium Chloride (Klor-Con M20) 20 meq PO ONETIME ONE Stop: 06/29/19 09:51 Last Admin: 06/29/19 10:13 Dose: 20 meq Valsartan (Diovan) 320 mg PO DAILY [facility] Last Admin: 06/30/19 08:18 Dose: 320 mg - Plan Plan:: I have seen and evaluated the patient and agree with the residents note unless specified in my note
[2019-06-28] MEDS: Nicotine 14 MG/24 Hr Patch TRDERM SCH ×2 (11:08→12:21)
--- NOTE | 2019-06-28 14:06 | CT ---
CT chest Technique: Multiple axial sections were obtained from above the lung apices inferiorly through the lung bases. Intravenous contrast was utilized. Study has been performed as pulmonary angiogram protocol. Findings: Pulmonary arteries are moderately well-opacified. No filling defects are seen to indicate pulmonary embolism. Aorta shows no aneurysm. No mediastinal adenopathy is seen. Hilar regions appear within normal limits. Minimal pericardial fluid is seen which is believed to be within normal limits. Visualized upper abdominal structures shows no discrete abnormality. No axillary adenopathy is seen. Lungs show no acute parenchymal change. No pleural effusions are seen. Bone window settings were reviewed which shows no acute osseous finding. Impression: 1. No findings of pulmonary embolism. 2. Nothing acute is appreciated on CT study of the chest. Diagnostic code #2 This report was dictated in [place] Standard Time
[2019-06-28] MEDS ORDERED: Iopamidol 755 MG/ML 500 ML Multipack Bottle IVPUSH STA (18:04)
[2019-06-29] MEDS: Heparin Sodium 5,000 Units/ML Vial SUBCUT SCH ×3 (04:49→20:31)
[2019-06-29] MEDS: Furosemide 40 MG/4 ML VIAL IVPUSH SCH ×2 (08:06→17:53)
[2019-06-29] MEDS: Nicotine 14 MG/24 Hr Patch TRDERM SCH (08:07)
[2019-06-29] MEDS: Isosorbide Mononitrate 60 MG Tab.ER PO SCH (08:08)
[2019-06-29] MEDS: Pantoprazole 40 MG Tab.CR PO SCH (08:08)
[2019-06-29 08:58] LABS: CARBON DIOXIDE,CO2 25.5 mmol/L (21.0-32.0); POTASSIUM,K 3.4 mmol/L (3.5-5.1)
[2019-06-29] MEDS ORDERED: Potassium Chloride 20 MEQ Tab.ER PO ONE (09:50)
[2019-06-29] MEDS: Docusate Sodium 100 MG Cap PO SCH ×2 (10:14→20:33)
[2019-06-29] MEDS: Acetaminophen 325 MG Tab PO PRN ×2 (10:22→18:14)
--- NOTE | 2019-06-29 12:11 | PCM.PN ---
<Norma Pettit - Last Filed: 06/29/19 12:11> - General Info Date of Service: 06/29/19 Subjective Update: Bedside: Denying any major discomfort; states cough is improving. Functional Status: Reports: Pain Controlled - Review of Systems General: Denies: Fever, Fatigue, Malaise, Chills HEENT: Reports: No Symptoms Pulmonary: Reports: No Symptoms, Cough. Denies: Sputum, Wheezing Cardiovascular: Reports: No Symptoms. Denies: Chest Pain, Palpitations Gastrointestinal: Reports: Constipation, Flatus. Denies: Abdominal Pain, Decreased Appetite, Diarrhea, Nausea, Vomiting Genitourinary: Reports: Frequency. Denies: Dysuria, Burning, Pain, Urgency Musculoskeletal: Reports: No Symptoms Skin: Reports: No Symptoms Neurological: Reports: Headache. Denies: Dizziness Psychiatric: Denies: Confusion, Depression - Patient Data Vitals - Most Recent: Last Vital Signs Temp 97.5 F 06/29/19 07:10 Pulse 108 H 06/29/19 07:10 Resp 18 06/29/19 07:10 BP 120/91 H 06/29/19 08:08 Pulse Ox 98 06/29/19 07:10 Weight - Most Recent: 92.9 kg I&O - Last 24 Hours: Intake & Output 06/28/19 06/29/19 06/29/19 22:59 06:59 14:59 Intake Total 500 700 Output Total 2700 2025 Balance -2200 -1325 Lab Results Last 24 Hours: Laboratory Results - last 24 hr 06/29/19 06/29/19 06/29/19 Range/Units 08:11 08:11 08:11 WBC 6.35 (4.0-11.0) K/uL RBC 5.21 (4.50-5.90) M/uL Hgb 17.9 H (13.0-17.0) g/dL Hct 50.2 H (38.0-50.0) % MCV 96.4 (80.0-98.0) fL MCH 34.4 H (27.0-32.0) pg MCHC 35.7 (31.0-37.0) g/dL RDW Std Deviation 53.3 (28.0-62.0) fl RDW Coeff of Francois 15 (11.0-15.0) % Plt Count 157 (150-400) K/uL MPV 10.20 (7.40-12.00) fL Neut % (Auto) 55.9 (48.0-80.0) % Lymph % (Auto) 32.4 (16.0-40.0) % [place] % (Auto) 9.9 (0.0-15.0) % Eos % (Auto) 1.3 (0.0-7.0) % Baso % (Auto) 0.5 (0.0-1.5) % Neut # (Auto) 3.6 (1.4-5.7) K/uL Lymph # (Auto) 2.1 (0.6-2.4) K/uL [place] # (Auto) 0.6 (0.0-0.8) K/uL Eos # (Auto) 0.1 (0.0-0.7) K/uL Baso # (Auto) 0.0 (0.0-0.1) K/uL Nucleated RBC % 0.0 /100WBC Nucleated RBCs # 0 K/uL Sodium 138 (136-148) mmol/L Potassium 3.4 L (3.5-5.1) mmol/L Chloride 101 (98-107) mmol/L Carbon Dioxide 25.5 (21.0-32.0) mmol/L BUN 29 H (7.0-18.0) mg/dL Creatinine 1.3 (0.8-1.3) mg/dL Est Cr Clr Drug Dosing 66.29 mL/min Estimated GFR (MDRD) 57.3 ml/min Glucose 188 H (74-106) mg/dL Calcium 10.3 H (8.5-10.1) mg/dL Total Bilirubin 2.4 H (0.2-1.0) mg/dL AST 36 (15-37) IU/L ALT 32 (14-63) IU/L Alkaline Phosphatase 132 H (46-116) U/L B-Natriuretic Peptide 528 H (<100) PG/ML Total Protein 6.8 (6.4-8.2) g/dL Albumin 3.3 L (3.4-5.0) g/dL Globulin 3.5 (2.6-4.0) g/dL Albumin/Globulin Ratio 0.9 (0.9-1.6) Med Orders - Current: Current Medications Acetaminophen (Tylenol) 650 mg PO Q6H PRN PRN Reason: Pain Last Admin: 06/29/19 10:22 Dose: 650 mg Albuterol/Ipratropium (Duoneb 3.0-0.5 Mg/3 Ml) 3 ml NEB Q4HRRT PRN PRN Reason: Shortness of Breath Last Admin: 06/28/19 09:25 Dose: 3 ml Docusate Sodium (Colace) 100 mg PO BID [facility] Last Admin: 06/29/19 10:14 Dose: 100 mg Furosemide (Lasix) 40 mg IVPUSH BID@0800,1800 [facility] Last Admin: 06/29/19 08:06 Dose: 40 mg Heparin Sodium (Porcine) (Heparin Sodium) 5,000 units SUBCUT Q8H [facility] Last Admin: 06/29/19 11:25 Dose: 5,000 units Isosorbide Mononitrate (Imdur) 60 mg PO DAILY [facility] Last Admin: 06/29/19 08:08 Dose: 60 mg Nicotine (Habitrol) 14 mg TRDERM DAILY [facility] Last Admin: 06/29/19 08:07 Dose: 14 mg Pantoprazole Sodium (Protonix) 40 mg PO DAILY [facility] Last Admin: 06/29/19 08:08 Dose: 40 mg Valsartan (Diovan) 320 mg PO DAILY [facility] Last Admin: 06/29/19 08:08 Dose: 320 mg Discontinued Medications Furosemide (Lasix) 40 mg IVPUSH NOW [facility] Heparin Sodium (Porcine) (Heparin Sodium) 5,000 units IVPUSH Q8H [facility] Last Admin: 06/27/19 21:08 Dose: Not Given Magnesium Sulfate 2 gm/ Premix 50 mls @ 25 mls/hr IV ONETIME ONE Stop: 06/27/19 20:26 Last Admin: 06/27/19 18:53 Dose: 25 mls/hr Magnesium Sulfate 2 gm/ Premix 50 mls @ 25 mls/hr IV ONETIME ONE Stop: 06/28/19 11:34 Last Admin: 06/28/19 10:25 Dose: 25 mls/hr Iopamidol (Isovue Multipack-370 (76%)) 100 ml IVPUSH ONETIME STA Stop: 06/28/19 18:05 Last Admin: 06/28/19 18:05 Dose: 50 ml Isosorbide Mononitrate (Imdur) 60 mg PO DAILY [facility] Last Admin: 06/27/19 18:16 Dose: Not Given Isosorbide Mononitrate (Imdur) 30 mg PO DAILY [facility] Last Admin: 06/28/19 09:08 Dose: 30 mg Potassium Chloride (Klor-Con M20) 20 meq PO ONETIME ONE Stop: 06/29/19 09:51 Last Admin: 06/29/19 10:13 Dose: 20 meq - Exam Quality Assessment: No: Supplemental Oxygen General: Alert, Oriented, Cooperative, No Acute Distress HEENT: EOMI, Mucous Membr. Moist/[place] Neck: Supple Lungs: Other (faint crackle at bases; improved on interval exam ) Cardiovascular: Regular Rate, Regular Rhythm GI/Abdominal Exam: Soft, Non-Tender Back Exam: Full Range of Motion Extremities: Other (+2 pitting edema; interval improvement ) Skin: Warm, Dry Neurological: No New Focal Deficit Psy/Mental Status: Alert, Normal Mood Sepsis Event Note - Evaluation Sepsis Screening Result: No Definite Risk - Focused Exam Vital Signs: Vital Signs Temp Pulse Resp BP BP Pulse Ox 06/29/19 08:08 120/91 H 06/29/19 07:10 97.5 F 108 H 18 120/91 H 98 06/29/19 04:57 107 H 17 102/72 94 L 06/29/19 03:59 97.2 F 116 H 18 140/108 H 96 Date Exam was Performed: 06/29/19 Time Exam was Performed: 12:11 - Problem List Review Problem List Initiated/Reviewed/Updated: Yes - Plan Plan:: Assessment: 1. Congestive heart failure in the setting of uncontrolled hypertension ( elevated BNP) 2. Uncontrolled hypertension:improving 3. Tobacco abuse 4. Hypomagnesemia 5. Elevated A1c of 6.4; monitor w/ glucose checks 6. Elevated Creatinine :improving Plan Admit to observation. Full code. Activity; up ad lucy. strict I's and O's. Fluid restricted with low-sodium diet. Daily weights. DVT prophylaxis: Heparin. GI prophylaxis; pantoprazole 40. Telemetry. 1. Congestive heart failure: Lasix 40 IV twice daily; will adjust accordingly. Imdur 60 mg daily. Valsartan:320 daily. HOLD All home medications at this time. (Patient has been off his Viagra for many years). Strict I's and O's/ fluid restrictions Heart failure assessment: Echocardiogram ordered: concerns for right heart strain; will continue to assess lung function today with CT angio Repeat BNP today Replete Magnesium w 2gram IV Increased Bili; advised to repeat in outpatient ; will order a Liver U/S and sent out a Hepatitis panel Headache: Tylenol ordered 2. HTN: Valsartan 320 daily. Add on Imdur 30 mg daily; continue to monitor pressures. Patient is also on telemetry. 3. Hypomagnesemia: 2 g IV. 4. Concern for DM; will monitor for now w. BG 5. Elevated Cr: monitor daily w/ CMP IMPROVING; will possibly need to increase Lasix if UOP non-satisfactory. UOP: satisfactory today w. some resolution of l/ e edema 6. Macrocytic anemia: monitor for now; will address accordingly/ Patient understood plan. We will adjust medical therapy as needed. <Royer Lam - Last Filed: 07/02/19 20:48> - Patient Data Vitals - Most Recent: Last Vital Signs Temp 35.8 C 06/30/19 13:22 Pulse 103 H 06/30/19 13:22 Resp 18 06/30/19 13:22 BP 145/104 H 06/30/19 13:22 Pulse Ox 99 06/30/19 13:22 Med Orders - Current: Current Medications Discontinued Medications Acetaminophen (Tylenol) 650 mg PO Q6H PRN PRN Reason: Pain Last Admin: 06/30/19 14:01 Dose: 650 mg Albuterol/Ipratropium (Duoneb 3.0-0.5 Mg/3 Ml) 3 ml NEB Q4HRRT PRN PRN Reason: Shortness of Breath Last Admin: 06/28/19 09:25 Dose: 3 ml Docusate Sodium (Colace) 100 mg PO BID [facility] Last Admin: 06/30/19 08:19 Dose: 100 mg Docusate Sodium (Colace) 100 mg PO DAILY PRN PRN Reason: Constipation Furosemide (Lasix) 40 mg IVPUSH NOW [facility] Furosemide (Lasix) 40 mg IVPUSH BID@0800,1800 [facility] Last Admin: 06/30/19 08:19 Dose: 40 mg Furosemide (Lasix) 40 mg IVPUSH ONETIME ONE Stop: 06/30/19 14:01 Last Admin: 06/30/19 13:58 Dose: 40 mg Heparin Sodium (Porcine) (Heparin Sodium) 5,000 units IVPUSH Q8H [facility] Last Admin: 06/27/19 21:08 Dose: Not Given Heparin Sodium (Porcine) (Heparin Sodium) 5,000 units SUBCUT Q8H [facility] Last Admin: 06/30/19 12:38 Dose: 5,000 units Magnesium Sulfate 2 gm/ Premix 50 mls @ 25 mls/hr IV ONETIME ONE Stop: 06/27/19 20:26 Last Admin: 06/27/19 18:53 Dose: 25 mls/hr Magnesium Sulfate 2 gm/ Premix 50 mls @ 25 mls/hr IV ONETIME ONE Stop: 06/28/19 11:34 Last Admin: 06/28/19 10:25 Dose: 25 mls/hr Magnesium Sulfate 2 gm/ Premix 50 mls @ 25 mls/hr IV ONETIME ONE Stop: 06/30/19 09:43 Last Admin: 06/30/19 08:20 Dose: 25 mls/hr Iopamidol (Isovue Multipack-370 (76%)) 100 ml IVPUSH ONETIME STA Stop: 06/28/19 18:05 Last Admin: 06/28/19 18:05 Dose: 50 ml Isosorbide Mononitrate (Imdur) 60 mg PO DAILY [facility] Last Admin: 06/27/19 18:16 Dose: Not Given Isosorbide Mononitrate (Imdur) 30 mg PO DAILY [facility] Last Admin: 06/28/19 09:08 Dose: 30 mg Isosorbide Mononitrate (Imdur) 60 mg PO DAILY [facility] Last Admin: 06/30/19 08:19 Dose: 60 mg Melatonin (Melatonin) 3 mg PO BEDTIME [facility] Last Admin: 06/29/19 20:30 Dose: 3 mg Nicotine (Habitrol) 14 mg TRDERM DAILY [facility] Last Admin: 06/30/19 08:19 Dose: 14 mg Pantoprazole Sodium (Protonix) 40 mg PO DAILY [facility] Last Admin: 06/30/19 08:19 Dose: 40 mg Potassium Chloride (Klor-Con M20) 20 meq PO ONETIME ONE Stop: 06/29/19 09:51 Last Admin: 06/29/19 10:13 Dose: 20 meq Valsartan (Diovan) 320 mg PO DAILY [facility] Last Admin: 06/30/19 08:18 Dose: 320 mg - Plan Plan:: I have seen and evaluated the patient and agree with the residents note unless specified in my note
[2019-06-29] MEDS ORDERED: Docusate Sodium 100 MG Cap PO PRN (12:12)
--- NOTE | 2019-06-29 12:37 | US ---
Limited abdominal ultrasound: Multiple real-time images of the upper right abdomen were obtained. Comparison: No previous abdominal imaging. Liver shows no focal parenchymal abnormality. Visualized portions of the pancreas appear within normal limits. Gallbladder contains no shadowing gallstones. No gallbladder wall thickening or biliary duct dilatation is seen. Right kidney shows no hydronephrosis or mass. Right kidney has a length of 10.8 cm. Impression: 1. No abnormality is appreciated on right upper quadrant abdominal ultrasound exam. Diagnostic code #1 This report was dictated in [place] Standard Time
[2019-06-29] MEDS ORDERED: Melatonin 3 MG Tab PO SCH (21:00)
[2019-06-30] MEDS: Heparin Sodium 5,000 Units/ML Vial SUBCUT SCH ×2 (05:44→12:38)
[2019-06-30 06:37] LABS: BLOOD UREA NITROGEN,BUN 30 mg/dL (7.0-18.0); CARBON DIOXIDE,CO2 29.6 mmol/L (21.0-32.0); CHLORIDE,CL 100 mmol/L (98-107); GLUCOSE RANDOM 110 mg/dL (74-106); POTASSIUM,K 3.6 mmol/L (3.5-5.1); SODIUM,NA 138 mmol/L (136-148)
[2019-06-30] MEDS ORDERED: Magnesium Sulfate/Water 2 GM in Premix Bag 1 BAG IV ONE (07:44)
[2019-06-30] MEDS: Docusate Sodium 100 MG Cap PO SCH (08:19)
[2019-06-30] MEDS: Nicotine 14 MG/24 Hr Patch TRDERM SCH (08:19)
[2019-06-30] MEDS: Isosorbide Mononitrate 60 MG Tab.ER PO SCH (08:19)
[2019-06-30] MEDS: Furosemide 40 MG/4 ML VIAL IVPUSH SCH (08:19)
[2019-06-30] MEDS: Pantoprazole 40 MG Tab.CR PO SCH (08:19)
--- NOTE | 2019-06-30 09:31 | PCM.DCSUM1 ---
<Norma Pettit - Last Filed: 06/30/19 12:50> Discharge Summary - Hospital Course Free Text/Narrative:: Discharge summary Admission diagnoses: dyspnea with exertion anasarca decompensated heart failure Tobacco abuse Remote history of methamphetamine abuse Uncontrolled hypertension Procedures: None Hospital course: Patient is a 53-year-old male with a significant past medical history of uncontrolled hypertension, tobacco abuse, history of methamphetamine abuse; presenting with 2 to 3 months of increased swelling of the face and lower extremities, with worsening dyspnea on exertion for the past 3 to 4 weeks. Patient was a direct admission from cardiology clinic secondary for concerns for decompensated heart failure (elevated BNP >900) . Echocardiogram performed ; suggesting right heart strain and heart failure. Patient was started on Lasix 40 IV twice daily, valsartan 320 daily, Imdur 30 daily, was fluid restricted and monitored throughout this time. >10 lbs weight loss; not near dry weight per discharge. CT angio was negative for pulmonary emboli. Patient responded to medical management; ultimately yielding 8 to 10 pounds of weight loss secondary to diuresis. Patient was still coughing with mild sputum productions, concern for baseline COPD, prescription for outpatient PFTs provided to patient. Patient clinically looks stable and improving. Sent home with p.o. formulations of medications and advised to follow-up with PCP and cardiology. Advised to discontinue tobacco abuse. Routine labs: elevated T.bili: Liver U/S unremarkable; advised to f/u in 1-2 weeks for recheck. Hep panel sent out: advised to follow up with PCP regarding results. Electrolytes repleted throughout time of stay. Discharge condition: Stable Disposition:Home Follow-up: PCP/Cardiology - Discharge Data Discharge Date: 06/30/19 Discharge Disposition: Home, Self-Care 01 Condition: Good - Referral to Home Health Primary Care Physician: Richie Vivas MD - Discharge Plan Prescriptions/Med Rec: Albuterol Sulfate [Proair Hfa] 8.5 gm IH Q4H PRN 14 Days #1 hfa.[email or web address] PRN Reason: Shortness Of Breath Furosemide [Lasix] 40 mg PO BID 30 Days #60 tab Isosorbide Mononitrate [Imdur] 30 mg PO DAILY 30 Days #30 tab.er Magnesium Oxide [Magnesium] 200 mg PO DAILY 10 Days #10 tab.chew Pantoprazole [ProTONIX] 40 mg PO DAILY 14 Days #14 tab.cr Valsartan 320 mg PO DAILY 30 Days #30 tablet Home Medications: Home Meds Albuterol Sulfate [Proair Hfa] 8.5 gm IH Q4H PRN 14 Days #1 hfa.aer.ad 06/30/19 [Rx] Furosemide [Lasix] 40 mg PO BID 30 Days #60 tab 06/30/19 [Rx] Isosorbide Mononitrate [Imdur] 30 mg PO DAILY 30 Days #30 tab.er 06/30/19 [Rx] Magnesium Oxide [Magnesium] 200 mg PO DAILY 10 Days #10 tab.chew 06/30/19 [Rx] Pantoprazole [ProTONIX] 40 mg PO DAILY 14 Days #14 tab.cr 06/30/19 [Rx] Valsartan 320 mg PO DAILY 30 Days #30 tablet 06/30/19 [Rx] Patient Handouts: Furosemide tablets, Valsartan tablets, Magnesium Hydroxide oral suspension, Albuterol inhalation aerosol, Isosorbide Mononitrate extended- release tablets, Pantoprazole tablets, Heart Failure, [id number] Referrals: [facility] [Outside] John Woodward MD [Physician] - 07/19/19 1:30 pm (Arrive 15 minutes early with a photo ID and insurance card. ) Norma Pettit MD [Resident] - 07/05/19 2:00 pm - Discharge Summary/Plan Comment DC Time >30 min.: No - Patient Data Vitals - Most Recent: Last Vital Signs Temp 97.2 F 06/30/19 07:15 Pulse 109 H 06/30/19 07:15 Resp 18 06/30/19 07:15 BP 133/104 H 06/30/19 08:18 Pulse Ox 95 06/30/19 07:15 Weight - Most Recent: 90.2 kg I&O - Last 24 hours: Intake & Output 06/29/19 06/30/19 06/30/19 22:59 06:59 14:59 Intake Total 850 700 Output Total 1400 350 Balance -550 350 Lab Results - Last 24 hrs: Laboratory Results - last 24 hr 06/29/19 06/29/19 06/30/19 Range/Units 08:11 08:11 06:13 WBC 7.10 (4.0-11.0) K/uL RBC 5.35 (4.50-5.90) M/uL Hgb 18.1 H (13.0-17.0) g/dL Hct 51.3 H (38.0-50.0) % MCV 95.9 (80.0-98.0) fL MCH 33.8 H (27.0-32.0) pg MCHC 35.3 (31.0-37.0) g/dL RDW Std Deviation 51.8 (28.0-62.0) fl RDW Coeff of Francois 15 (11.0-15.0) % Plt Count 151 (150-400) K/uL MPV 9.70 (7.40-12.00) fL Neut % (Auto) 53.3 (48.0-80.0) % Lymph % (Auto) 33.5 (16.0-40.0) % [place] % (Auto) 11.5 (0.0-15.0) % Eos % (Auto) 1.3 (0.0-7.0) % Baso % (Auto) 0.4 (0.0-1.5) % Neut # (Auto) 3.8 (1.4-5.7) K/uL Lymph # (Auto) 2.4 (0.6-2.4) K/uL [place] # (Auto) 0.8 (0.0-0.8) K/uL Eos # (Auto) 0.1 (0.0-0.7) K/uL Baso # (Auto) 0.0 (0.0-0.1) K/uL Nucleated RBC % 0.0 /100WBC Nucleated RBCs # 0 K/uL Sodium 138 (136-148) mmol/L Potassium 3.4 L (3.5-5.1) mmol/L Chloride 101 (98-107) mmol/L Carbon Dioxide 25.5 (21.0-32.0) mmol/L BUN 29 H (7.0-18.0) mg/dL Creatinine 1.3 (0.8-1.3) mg/dL Est Cr Clr Drug Dosing 66.29 mL/min Estimated GFR (MDRD) 57.3 ml/min Glucose 188 H (74-106) mg/dL Calcium 10.3 H (8.5-10.1) mg/dL Phosphorus (2.6-4.7) mg/dL Magnesium (1.8-2.4) mg/dL Total Bilirubin 2.4 H (0.2-1.0) mg/dL AST 36 (15-37) IU/L ALT 32 (14-63) IU/L Alkaline Phosphatase 132 H (46-116) U/L B-Natriuretic Peptide 528 H (<100) PG/ML Total Protein 6.8 (6.4-8.2) g/dL Albumin 3.3 L (3.4-5.0) g/dL Globulin 3.5 (2.6-4.0) g/dL Albumin/Globulin Ratio 0.9 (0.9-1.6) 06/30/19 Range/Units 06:13 WBC (4.0-11.0) K/uL RBC (4.50-5.90) M/uL Hgb (13.0-17.0) g/dL Hct (38.0-50.0) % MCV (80.0-98.0) fL MCH (27.0-32.0) pg MCHC (31.0-37.0) g/dL RDW Std Deviation (28.0-62.0) fl RDW Coeff of Francois (11.0-15.0) % Plt Count (150-400) K/uL MPV (7.40-12.00) fL Neut % (Auto) (48.0-80.0) % Lymph % (Auto) (16.0-40.0) % [place] % (Auto) (0.0-15.0) % Eos % (Auto) (0.0-7.0) % Baso % (Auto) (0.0-1.5) % Neut # (Auto) (1.4-5.7) K/uL Lymph # (Auto) (0.6-2.4) K/uL [place] # (Auto) (0.0-0.8) K/uL Eos # (Auto) (0.0-0.7) K/uL Baso # (Auto) (0.0-0.1) K/uL Nucleated RBC % /100WBC Nucleated RBCs # K/uL Sodium 138 (136-148) mmol/L Potassium 3.6 (3.5-5.1) mmol/L Chloride 100 (98-107) mmol/L Carbon Dioxide 29.6 (21.0-32.0) mmol/L BUN 30 H (7.0-18.0) mg/dL Creatinine 1.2 (0.8-1.3) mg/dL Est Cr Clr Drug Dosing 71.82 mL/min Estimated GFR (MDRD) > 60.0 ml/min Glucose 110 H (74-106) mg/dL Calcium 10.6 H (8.5-10.1) mg/dL Phosphorus 3.1 (2.6-4.7) mg/dL Magnesium 1.3 L (1.8-2.4) mg/dL Total Bilirubin (0.2-1.0) mg/dL AST (15-37) IU/L ALT (14-63) IU/L Alkaline Phosphatase (46-116) U/L B-Natriuretic Peptide (<100) PG/ML Total Protein (6.4-8.2) g/dL Albumin (3.4-5.0) g/dL Globulin (2.6-4.0) g/dL Albumin/Globulin Ratio (0.9-1.6) Med Orders - Current: Current Medications Acetaminophen (Tylenol) 650 mg PO Q6H PRN PRN Reason: Pain Last Admin: 06/29/19 18:14 Dose: 650 mg Albuterol/Ipratropium (Duoneb 3.0-0.5 Mg/3 Ml) 3 ml NEB Q4HRRT PRN PRN Reason: Shortness of Breath Last Admin: 06/28/19 09:25 Dose: 3 ml Docusate Sodium (Colace) 100 mg PO BID [facility] Last Admin: 06/30/19 08:19 Dose: 100 mg Docusate Sodium (Colace) 100 mg PO DAILY PRN PRN Reason: Constipation Furosemide (Lasix) 40 mg IVPUSH BID@0800,1800 [facility] Last Admin: 06/30/19 08:19 Dose: 40 mg Heparin Sodium (Porcine) (Heparin Sodium) 5,000 units SUBCUT Q8H [facility] Last Admin: 06/30/19 05:44 Dose: 5,000 units Magnesium Sulfate 2 gm/ Premix 50 mls @ 25 mls/hr IV ONETIME ONE Stop: 06/30/19 09:43 Last Admin: 06/30/19 08:20 Dose: 25 mls/hr Isosorbide Mononitrate (Imdur) 60 mg PO DAILY [facility] Last Admin: 06/30/19 08:19 Dose: 60 mg Melatonin (Melatonin) 3 mg PO BEDTIME [facility] Last Admin: 06/29/19 20:30 Dose: 3 mg Nicotine (Habitrol) 14 mg TRDERM DAILY [facility] Last Admin: 06/30/19 08:19 Dose: 14 mg Pantoprazole Sodium (Protonix) 40 mg PO DAILY [facility] Last Admin: 06/30/19 08:19 Dose: 40 mg Valsartan (Diovan) 320 mg PO DAILY [facility] Last Admin: 06/30/19 08:18 Dose: 320 mg Discontinued Medications Furosemide (Lasix) 40 mg IVPUSH NOW [facility] Heparin Sodium (Porcine) (Heparin Sodium) 5,000 units IVPUSH Q8H [facility] Last Admin: 06/27/19 21:08 Dose: Not Given Magnesium Sulfate 2 gm/ Premix 50 mls @ 25 mls/hr IV ONETIME ONE Stop: 06/27/19 20:26 Last Admin: 06/27/19 18:53 Dose: 25 mls/hr Magnesium Sulfate 2 gm/ Premix 50 mls @ 25 mls/hr IV ONETIME ONE Stop: 06/28/19 11:34 Last Admin: 06/28/19 10:25 Dose: 25 mls/hr Iopamidol (Isovue Multipack-370 (76%)) 100 ml IVPUSH ONETIME STA Stop: 06/28/19 18:05 Last Admin: 06/28/19 18:05 Dose: 50 ml Isosorbide Mononitrate (Imdur) 60 mg PO DAILY [facility] Last Admin: 06/27/19 18:16 Dose: Not Given Isosorbide Mononitrate (Imdur) 30 mg PO DAILY [facility] Last Admin: 06/28/19 09:08 Dose: 30 mg Potassium Chloride (Klor-Con M20) 20 meq PO ONETIME ONE Stop: 06/29/19 09:51 Last Admin: 06/29/19 10:13 Dose: 20 meq <Royer Lam - Last Filed: 07/02/19 20:48> Discharge Summary - Hospital Course Free Text/Narrative:: I have seen and evaluated the patient and agree with the residents note unless specified in my note - Referral to Home Health Primary Care Physician: Richie Vivas MD - Patient Data Vitals - Most Recent: Last Vital Signs Temp 35.8 C 06/30/19 13:22 Pulse 103 H 06/30/19 13:22 Resp 18 06/30/19 13:22 BP 145/104 H 06/30/19 13:22 Pulse Ox 99 06/30/19 13:22 Med Orders - Current: Current Medications Discontinued Medications Acetaminophen (Tylenol) 650 mg PO Q6H PRN PRN Reason: Pain Last Admin: 06/30/19 14:01 Dose: 650 mg Albuterol/Ipratropium (Duoneb 3.0-0.5 Mg/3 Ml) 3 ml NEB Q4HRRT PRN PRN Reason: Shortness of Breath Last Admin: 06/28/19 09:25 Dose: 3 ml Docusate Sodium (Colace) 100 mg PO BID [facility] Last Admin: 06/30/19 08:19 Dose: 100 mg Docusate Sodium (Colace) 100 mg PO DAILY PRN PRN Reason: Constipation Furosemide (Lasix) 40 mg IVPUSH NOW [facility] Furosemide (Lasix) 40 mg IVPUSH BID@0800,1800 [facility] Last Admin: 06/30/19 08:19 Dose: 40 mg Furosemide (Lasix) 40 mg IVPUSH ONETIME ONE Stop: 06/30/19 14:01 Last Admin: 06/30/19 13:58 Dose: 40 mg Heparin Sodium (Porcine) (Heparin Sodium) 5,000 units IVPUSH Q8H [facility] Last Admin: 06/27/19 21:08 Dose: Not Given Heparin Sodium (Porcine) (Heparin Sodium) 5,000 units SUBCUT Q8H [facility] Last Admin: 06/30/19 12:38 Dose: 5,000 units Magnesium Sulfate 2 gm/ Premix 50 mls @ 25 mls/hr IV ONETIME ONE Stop: 06/27/19 20:26 Last Admin: 06/27/19 18:53 Dose: 25 mls/hr Magnesium Sulfate 2 gm/ Premix 50 mls @ 25 mls/hr IV ONETIME ONE Stop: 06/28/19 11:34 Last Admin: 06/28/19 10:25 Dose: 25 mls/hr Magnesium Sulfate 2 gm/ Premix 50 mls @ 25 mls/hr IV ONETIME ONE Stop: 06/30/19 09:43 Last Admin: 06/30/19 08:20 Dose: 25 mls/hr Iopamidol (Isovue Multipack-370 (76%)) 100 ml IVPUSH ONETIME STA Stop: 06/28/19 18:05 Last Admin: 06/28/19 18:05 Dose: 50 ml Isosorbide Mononitrate (Imdur) 60 mg PO DAILY [facility] Last Admin: 06/27/19 18:16 Dose: Not Given Isosorbide Mononitrate (Imdur) 30 mg PO DAILY [facility] Last Admin: 06/28/19 09:08 Dose: 30 mg Isosorbide Mononitrate (Imdur) 60 mg PO DAILY [facility] Last Admin: 06/30/19 08:19 Dose: 60 mg Melatonin (Melatonin) 3 mg PO BEDTIME [facility] Last Admin: 06/29/19 20:30 Dose: 3 mg Nicotine (Habitrol) 14 mg TRDERM DAILY [facility] Last Admin: 06/30/19 08:19 Dose: 14 mg Pantoprazole Sodium (Protonix) 40 mg PO DAILY [facility] Last Admin: 06/30/19 08:19 Dose: 40 mg Potassium Chloride (Klor-Con M20) 20 meq PO ONETIME ONE Stop: 06/29/19 09:51 Last Admin: 06/29/19 10:13 Dose: 20 meq Valsartan (Diovan) 320 mg PO DAILY [facility] Last Admin: 06/30/19 08:18 Dose: 320 mg
[2019-06-30 09:54] LABS: BILIRUBIN INDIRECT 1.5
[2019-06-30 13:23] VITALS: BP 145/104; PULSE 103
[2019-06-30] MEDS ORDERED: Furosemide 40 MG/4 ML VIAL IVPUSH ONE (14:00)
[2019-06-30] MEDS: Acetaminophen 325 MG Tab PO PRN (14:01)
--- NOTE | 2019-07-03 12:32 | ECHO ---
EXAM DATE: 06/27/19 PATIENT'S AGE: 53 The echocardiogram report can be seen in this patient's EMR (Electronic Medical Record) in the Reports section. The report has also been scanned into PACs. [id number]
== END 2019-06-30 14:45 | disposition home or self-care (01) ==
LOC: UNDOADMOB 16:50 → MW.MS 16:50
PROVIDERS: ADMIT Student in an Organized Health Care Education/Training Program; ATTEND Student in an Organized Health Care Education/Training Program
DX: I11.0 Hypertensive heart disease with heart failure (principal); I50.9 Heart failure, unspecified; F15.11 Other stimulant abuse, in remission; E83.42 Hypomagnesemia; D53.9 Nutritional anemia, unspecified; F17.210 Nicotine dependence, cigarettes, uncomplicated
CPT/HCPCS: 36415; 71275; 76705; 80048; 80053; 80074; 80076; 83036; 83735; 83880; 84100; 84484; 85025; 93005; 93306; 96365; 96366; 96372; 96375; 96376; A9270; G0378; G0379; J1644; J1940; J3475; Q9967; J7620-GY

== ENCOUNTER 2019-08-16 14:34 | Observation (INO) | payer OTHER ==
--- NOTE | 2019-08-16 15:03 | EDM.PDOC ---
ED HPI GENERAL MEDICAL PROBLEM - General Chief Complaint: General Stated Complaint: KIDNEYS Time Seen by Provider: 08/16/19 14:53 Source of Information: Reports: Patient History Limitations: Reports: No Limitations - History of Present Illness INITIAL COMMENTS - FREE TEXT/NARRATIVE: This 53 year old male is admitted to the ED with a chief complaint of SOB over the past day or two that increases with walking. He denies any problems when laying flat. He states that his PCP call him today and told him that he had a "kidney problem and to go directly to the ED" He denies any chest pain or other problems at this time. Onset: Gradual (past two days) Duration: Getting Worse Severity: Mild (to moderate SOB) Improves with: Reports: Rest Worsens with: Reports: Movement - Related Data Allergies Allergy/AdvReac Type Severity Reaction Status Date / Time No Known Allergies Allergy Verified 08/16/19 14:56 Home Meds: Home Meds Albuterol Sulfate [Proair Hfa] 8.5 gm IH Q4H PRN 14 Days #1 hfa.aer.ad 06/30/19 [Rx] Furosemide [Lasix] 40 mg PO BID 30 Days #60 tab 06/30/19 [Rx] Isosorbide Mononitrate [Imdur] 30 mg PO DAILY 30 Days #30 tab.er 06/30/19 [Rx] Magnesium Oxide [Magnesium] 200 mg PO DAILY 10 Days #10 tab.chew 06/30/19 [Rx] Pantoprazole [ProTONIX] 40 mg PO DAILY 14 Days #14 tab.cr 06/30/19 [Rx] Valsartan 320 mg PO DAILY 30 Days #30 tablet 06/30/19 [Rx] Past Medical History HEENT History: Reports: None Cardiovascular History: Reports: None Respiratory History: Reports: SOB Gastrointestinal History: Reports: None, Other (See Below) Other Gastrointestinal History: Abdominal Blockage Genitourinary History: Reports: None Musculoskeletal History: Reports: None Neurological History: Reports: None Psychiatric History: Reports: Addiction, Depression Other Psychiatric History: Year ago when this stared. Endocrine/Metabolic History: Reports: None Hematologic History: Reports: None Immunologic History: Reports: None Oncologic (Cancer) History: Reports: None Dermatologic History: Reports: None - Infectious Disease History Infectious Disease History: Reports: Measles, Shingles - Past Surgical History Head Surgeries/Procedures: Reports: None HEENT Surgical History: Reports: None Cardiovascular Surgical History: Reports: None Respiratory Surgical History: Reports: None GI Surgical History: Reports: None Male Surgical History: Reports: None Neurological Surgical History: Reports: None Musculoskeletal Surgical History: Reports: None, Other (See Below) Other Musculoskeletal Surgeries/Procedures:: both knee ACL Oncologic Surgical History: Reports: None Social & Family History - Family History Family Medical History: Noncontributory - Caffeine Use Caffeine Use: Reports: Coffee, Tea ED ROS GENERAL - Review of Systems Review Of Systems: See Below Constitutional: Reports: No Symptoms HEENT: Reports: No Symptoms Respiratory: Reports: Shortness of Breath Cardiovascular: Reports: No Symptoms Endocrine: Reports: No Symptoms GI/Abdominal: Reports: No Symptoms : Reports: No Symptoms Musculoskeletal: Reports: No Symptoms Skin: Reports: No Symptoms Neurological: Reports: No Symptoms ED EXAM, GENERAL - Physical Exam Exam: See Below Exam Limited By: No Limitations General Appearance: Alert, No Apparent Distress, Lethargic Eye Exam: Bilateral Eye: EOMI, Normal Inspection, PERRL Ears: Normal External Exam, Normal Canal, Hearing Grossly Normal, Normal TMs Ear Exam: Bilateral Ear: Auricle Normal, Canal Normal, TM normal Nose: Normal Inspection, Normal Mucosa, No Blood Throat/Mouth: Normal Inspection, Normal Lips, Normal Teeth, Normal Gums, Normal Oropharynx, Normal Voice, No Airway Compromise Head: Atraumatic, Normocephalic Neck: Normal Inspection, Supple, Non-Tender, Full Range of Motion Respiratory/Chest: No Respiratory Distress, Lungs Clear, Normal Breath Sounds, No Accessory Muscle Use, Chest Non-Tender Cardiovascular: Regular Rate, Rhythm, No JVD, No Murmur, Tachycardia Peripheral Pulses: 3+: Carotid (L), Carotid (R), Dorsalis Pedis (L), Dorsalis Pedis (R) GI/Abdominal: Normal Bowel Sounds, Soft, Non-Tender, No Organomegaly, No Distention, No Abnormal Bruit, No Mass (Male) Exam: Deferred Rectal (Males) Exam: Deferred Back Exam: Normal Inspection Extremities: Normal Inspection, Non-Tender, No Pedal Edema, Normal Capillary Refill Neurological: Alert, Oriented (times four), CN II-XII Intact, Normal Cognition, Normal Reflexes, No Motor/Sensory Deficits Psychiatric: Normal Affect, Normal Mood Skin Exam: Warm, Dry (very dry), Normal Color, No Rash Lymphatic: No Adenopathy Course - Vital Signs Text/Narrative:: I talked with Dr. Kuhn at 5:10PM after reviewing all of the patients diagnostic testing. I told Dr. Kuhn that I feel the patient has prerenal azotemia. The patient will be admitted to Med[facility]. The patient agrees with the admission plan. Last Recorded V/S: Last Vital Signs Temp 96.7 F L 08/16/19 14:52 Pulse 96 08/16/19 16:31 Resp 16 08/16/19 16:31 BP 97/53 L 08/16/19 16:31 Pulse Ox 94 L 08/16/19 16:31 - Orders/Labs/Meds Orders: Active Orders 24 hr Category Date Time Status EKG Documentation Completion [RC] STAT Care 08/16/19 15:16 Active DRUG SCREEN, URINE [URCHEM] Stat Lab 08/16/19 16:06 Ordered TROPONIN I [CHEM] Stat Lab 08/16/19 16:57 Received UA RFX KHADAR AND CULT IF INDIC [URIN] Stat Lab 08/16/19 16:06 Ordered Sodium Chloride 0.9% [Normal Saline] 1,000 ml Med 08/16/19 17:00 Active IV ASDIRECTED Sodium Chloride 0.9% [Normal Saline] 1,000 ml Med 08/16/19 16:30 Active IV STAT Medication Orders Sodium Chloride (Normal Saline) 1,000 mls @ 999 mls/hr IV STAT JOSUE Last Admin: 08/16/19 16:30 Dose: 999 mls/hr Sodium Chloride (Normal Saline) 1,000 mls @ 1,000 mls/hr IV ASDIRECTED JOSUE Last Admin: 08/16/19 16:58 Dose: 1,000 mls/hr Labs: Laboratory Tests 08/16/19 08/16/19 08/16/19 Range/Units 15:00 15:00 15:00 WBC 9.01 (4.0-11.0) K/uL RBC 5.27 (4.50-5.90) M/uL Hgb 17.7 H (13.0-17.0) g/dL Hct 50.8 H (38.0-50.0) % MCV 96.4 (80.0-98.0) fL MCH 33.6 H (27.0-32.0) pg MCHC 34.8 (31.0-37.0) g/dL RDW Std Deviation 48.7 (28.0-62.0) fl RDW Coeff of Francois 14 (11.0-15.0) % Plt Count 197 (150-400) K/uL MPV 10.10 (7.40-12.00) fL Neut % (Auto) 61.5 (48.0-80.0) % Lymph % (Auto) 26.9 (16.0-40.0) % Johnson % (Auto) 10.1 (0.0-15.0) % Eos % (Auto) 1.2 (0.0-7.0) % Baso % (Auto) 0.3 (0.0-1.5) % Neut # (Auto) 5.5 (1.4-5.7) K/uL Lymph # (Auto) 2.4 (0.6-2.4) K/uL Johnson # (Auto) 0.9 H (0.0-0.8) K/uL Eos # (Auto) 0.1 (0.0-0.7) K/uL Baso # (Auto) 0.0 (0.0-0.1) K/uL Nucleated RBC % 0.0 /100WBC Nucleated RBCs # 0 K/uL Sodium 138 (136-148) mmol/L Potassium 4.9 (3.5-5.1) mmol/L Chloride 99 (98-107) mmol/L Carbon Dioxide 32.3 H (21.0-32.0) mmol/L BUN 72 H (7.0-18.0) mg/dL Creatinine 2.2 H (0.8-1.3) mg/dL Est Cr Clr Drug Dosing 39.17 mL/min Estimated GFR (MDRD) 31.2 ml/min Glucose 84 (74-106) mg/dL Calcium 10.3 H (8.5-10.1) mg/dL Magnesium 2.4 (1.8-2.4) mg/dL Total Bilirubin 1.2 H (0.2-1.0) mg/dL AST 37 (15-37) IU/L ALT 36 (14-63) IU/L Alkaline Phosphatase 190 H (46-116) U/L Troponin I < 0.050 (0.000-0.056) ng/mL Total Protein 7.9 (6.4-8.2) g/dL Albumin 3.8 (3.4-5.0) g/dL Globulin 4.1 H (2.6-4.0) g/dL Albumin/Globulin Ratio 0.9 (0.9-1.6) Meds: Medications Generic Name Dose Route Start Last Admin Trade Name Freq PRN Reason Stop Dose Admin Sodium Chloride 1,000 mls @ 999 mls/hr 08/16/19 16:30 08/16/19 16:30 Normal Saline IV 999 mls/hr STAT JOSUE Administration Sodium Chloride 1,000 mls @ 1,000 mls/hr 08/16/19 17:00 08/16/19 16:58 Normal Saline IV 1,000 mls/hr ASDIRECTED JOSUE Administration Departure - Departure Time of Disposition: 17:14 Disposition: Refer to Observation Condition: Fair Clinical Impression: Hypotension due to hypovolemia, Prerenal azotemia, Acute renal injury due to hypovolemia - Discharge Information *PRESCRIPTION DRUG MONITORING PROGRAM REVIEWED*: Yes *COPY OF PRESCRIPTION DRUG MONITORING REPORT IN PATIENT NING: Yes Referrals: Manpreet Arnold MD [Primary Care Provider] - Forms: ED Department Discharge Sepsis Event Note - Focused Exam Vital Signs: Vital Signs Temp Pulse Resp BP Pulse Ox 08/16/19 16:31 96 16 97/53 L 94 L 08/16/19 14:52 96.7 F L 93 16 93/70 101 H Date Exam was Performed: 08/16/19 Time Exam was Performed: 17:12 - My Orders Last 24 Hours: My Active Orders 08/16/19 15:16 EKG Documentation Completion [RC] STAT 08/16/19 16:06 DRUG SCREEN, URINE [URCHEM] Stat UA RFX KHADAR AND CULT IF INDIC [URIN] Stat 08/16/19 16:30 Sodium Chloride 0.9% [Normal Saline] 1,000 ml IV STAT 08/16/19 16:57 TROPONIN I [CHEM] Stat 08/16/19 17:00 Sodium Chloride 0.9% [Normal Saline] 1,000 ml IV ASDIRECTED - Assessment/Plan Last 24 Hours: My Active Orders 08/16/19 15:16 EKG Documentation Completion [RC] STAT 08/16/19 16:06 DRUG SCREEN, URINE [URCHEM] Stat UA RFX KHADAR AND CULT IF INDIC [URIN] Stat 08/16/19 16:30 Sodium Chloride 0.9% [Normal Saline] 1,000 ml IV STAT 08/16/19 16:57 TROPONIN I [CHEM] Stat 08/16/19 17:00 Sodium Chloride 0.9% [Normal Saline] 1,000 ml IV ASDIRECTED
[2019-08-16] MEDS ORDERED: Sodium Chloride 0.9% 1,000 ML IV SCH ×2 (16:30→17:00)
[2019-08-16 16:34] LABS: BLOOD UREA NITROGEN,BUN 72 mg/dL (7.0-18.0); CARBON DIOXIDE,CO2 32.3 mmol/L (21.0-32.0); CHLORIDE,CL 99 mmol/L (98-107); GLUCOSE RANDOM 84 mg/dL (74-106); POTASSIUM,K 4.9 mmol/L (3.5-5.1); SODIUM,NA 138 mmol/L (136-148)
--- NOTE | 2019-08-16 16:44 | CR ---
Chest: Portable view of the chest was obtained. Comparison: Prior chest x-ray of 06/27/19 as well as prior chest CT of 06/28/19. Heart is mildly enlarged. Upper mediastinum is normal. Lungs show no acute parenchymal change. Old left acromioclavicular separation partially seen, no acute bony finding is appreciated. Impression: 1. Mild cardiomegaly which is stable. 2. Nothing acute is appreciated. Diagnostic code #2 This report was dictated in [place] Standard Time
[2019-08-16] MEDS ORDERED: Acetaminophen 325 MG Tab PO PRN (17:41)
[2019-08-16] MEDS ORDERED: Ondansetron 4 MG Tab.DIS PO PRN (17:41)
[2019-08-16] MEDS ORDERED: Ondansetron 4 MG/2 ML SDV IVPUSH PRN (17:41)
[2019-08-16] MEDS ORDERED: Albuterol 0.083% 2.5 MG/3 ML Neb Soln NEB PRN (17:41)
--- NOTE | 2019-08-16 17:48 | PCM.HP.2 ---
H&P History of Present Illness - General Date of Service: 08/16/19 Admit Problem/Dx: Admission Diagnosis/Problem Admission Diagnosis/Problem Dehydration - History of Present Illness Initial Comments - Free Text/Narative: 53 y/o male with history of diastolic heart failure who presented to the ER after he was instructed by his PCP. Patient states that he has been taking his medications. Does not know the doses. States he has been feeling more dizzy, lightheaded for the past 1 week. No nausea, vomiting. No chest pain, dyspnea, abdominal pain, diarrhea, swelling. States he lost about 20 lbs from his last admission. In the ER, SBP 90's, Cr 2.2. He was given 2 L NS. troponin negative. - Related Data Allergies/Adverse Reactions: Allergies Allergy/AdvReac Type Severity Reaction Status Date / Time No Known Allergies Allergy Verified 08/16/19 14:56 Home Medications: Home Meds Albuterol Sulfate [Proair Hfa] 8.5 gm IH Q4H PRN 14 Days #1 hfa.aer.ad 06/30/19 [Rx] Furosemide [Lasix] 40 mg PO BID 30 Days #60 tab 06/30/19 [Rx] Isosorbide Mononitrate [Imdur] 30 mg PO DAILY 30 Days #30 tab.er 06/30/19 [Rx] Magnesium Oxide [Magnesium] 200 mg PO DAILY 10 Days #10 tab.chew 06/30/19 [Rx] Pantoprazole [ProTONIX] 40 mg PO DAILY 14 Days #14 tab.cr 06/30/19 [Rx] Valsartan 320 mg PO DAILY 30 Days #30 tablet 06/30/19 [Rx] Past Medical History HEENT History: Reports: None Cardiovascular History: Reports: None Respiratory History: Reports: SOB Gastrointestinal History: Reports: None, Other (See Below) Other Gastrointestinal History: Abdominal Blockage Genitourinary History: Reports: None Musculoskeletal History: Reports: None Neurological History: Reports: None Psychiatric History: Reports: Addiction, Depression Other Psychiatric History: Year ago when this stared. Endocrine/Metabolic History: Reports: None Hematologic History: Reports: None Immunologic History: Reports: None Oncologic (Cancer) History: Reports: None Dermatologic History: Reports: None - Infectious Disease History Infectious Disease History: Reports: Measles, Shingles - Past Surgical History Head Surgeries/Procedures: Reports: None HEENT Surgical History: Reports: None Cardiovascular Surgical History: Reports: None Respiratory Surgical History: Reports: None GI Surgical History: Reports: None Male Surgical History: Reports: None Neurological Surgical History: Reports: None Musculoskeletal Surgical History: Reports: None, Other (See Below) Other Musculoskeletal Surgeries/Procedures:: both knee ACL Oncologic Surgical History: Reports: None Social & Family History - Family History Family Medical History: Noncontributory - Tobacco Use Smoking Status *Q: Former Smoker Used Tobacco, but Quit: Yes Month/Year Tobacco Last Used: 2019 - Caffeine Use Caffeine Use: Reports: Coffee, Tea - Recreational Drug Use Recreational Drug Use: Yes Drug Use in Last 12 Months: Yes Recreational Drug Type: Reports: Marijuana/Hashish Recreational Drug Use Frequency: Weekly H&P Review of Systems - Review of Systems: Review Of Systems: Comprehensive ROS is negative, except as noted in HPI. Exam - Exam Exam: See Below - Vital Signs Vital Signs: Last Vital Signs Temp 35.9 C L 08/16/19 14:52 Pulse 96 08/16/19 16:31 Resp 16 08/16/19 16:31 BP 97/53 L 08/16/19 16:31 Pulse Ox 94 L 08/16/19 16:31 Weight: 92.4 kg - Exam General: Alert, Oriented, Cooperative HEENT: Other (dry oral mucosa) Lungs: Clear to Auscultation, Normal Respiratory Effort. No: Crackles, Wheezing Cardiovascular: Regular Rate, Regular Rhythm GI/Abdominal Exam: Normal Bowel Sounds, Soft, Non-Tender, No Distention Extremities: Normal Inspection, No Pedal Edema Skin: Warm, Dry - Patient Data Lab Results Last 24 hrs: Laboratory Results - last 24 hr 08/16/19 08/16/19 08/16/19 Range/Units 15:00 15:00 15:00 WBC 9.01 (4.0-11.0) K/uL RBC 5.27 (4.50-5.90) M/uL Hgb 17.7 H (13.0-17.0) g/dL Hct 50.8 H (38.0-50.0) % MCV 96.4 (80.0-98.0) fL MCH 33.6 H (27.0-32.0) pg MCHC 34.8 (31.0-37.0) g/dL RDW Std Deviation 48.7 (28.0-62.0) fl RDW Coeff of Francois 14 (11.0-15.0) % Plt Count 197 (150-400) K/uL MPV 10.10 (7.40-12.00) fL Neut % (Auto) 61.5 (48.0-80.0) % Lymph % (Auto) 26.9 (16.0-40.0) % Bay % (Auto) 10.1 (0.0-15.0) % Eos % (Auto) 1.2 (0.0-7.0) % Baso % (Auto) 0.3 (0.0-1.5) % Neut # (Auto) 5.5 (1.4-5.7) K/uL Lymph # (Auto) 2.4 (0.6-2.4) K/uL Bay # (Auto) 0.9 H (0.0-0.8) K/uL Eos # (Auto) 0.1 (0.0-0.7) K/uL Baso # (Auto) 0.0 (0.0-0.1) K/uL Nucleated RBC % 0.0 /100WBC Nucleated RBCs # 0 K/uL Sodium 138 (136-148) mmol/L Potassium 4.9 (3.5-5.1) mmol/L Chloride 99 (98-107) mmol/L Carbon Dioxide 32.3 H (21.0-32.0) mmol/L BUN 72 H (7.0-18.0) mg/dL Creatinine 2.2 H (0.8-1.3) mg/dL Est Cr Clr Drug Dosing 39.17 mL/min Estimated GFR (MDRD) 31.2 ml/min Glucose 84 (74-106) mg/dL Calcium 10.3 H (8.5-10.1) mg/dL Magnesium 2.4 (1.8-2.4) mg/dL Total Bilirubin 1.2 H (0.2-1.0) mg/dL AST 37 (15-37) IU/L ALT 36 (14-63) IU/L Alkaline Phosphatase 190 H (46-116) U/L Troponin I < 0.050 (0.000-0.056) ng/mL Total Protein 7.9 (6.4-8.2) g/dL Albumin 3.8 (3.4-5.0) g/dL Globulin 4.1 H (2.6-4.0) g/dL Albumin/Globulin Ratio 0.9 (0.9-1.6) 08/16/19 Range/Units 16:57 WBC (4.0-11.0) K/uL RBC (4.50-5.90) M/uL Hgb (13.0-17.0) g/dL Hct (38.0-50.0) % MCV (80.0-98.0) fL MCH (27.0-32.0) pg MCHC (31.0-37.0) g/dL RDW Std Deviation (28.0-62.0) fl RDW Coeff of Francois (11.0-15.0) % Plt Count (150-400) K/uL MPV (7.40-12.00) fL Neut % (Auto) (48.0-80.0) % Lymph % (Auto) (16.0-40.0) % Bay % (Auto) (0.0-15.0) % Eos % (Auto) (0.0-7.0) % Baso % (Auto) (0.0-1.5) % Neut # (Auto) (1.4-5.7) K/uL Lymph # (Auto) (0.6-2.4) K/uL Bay # (Auto) (0.0-0.8) K/uL Eos # (Auto) (0.0-0.7) K/uL Baso # (Auto) (0.0-0.1) K/uL Nucleated RBC % /100WBC Nucleated RBCs # K/uL Sodium (136-148) mmol/L Potassium (3.5-5.1) mmol/L Chloride (98-107) mmol/L Carbon Dioxide (21.0-32.0) mmol/L BUN (7.0-18.0) mg/dL Creatinine (0.8-1.3) mg/dL Est Cr Clr Drug Dosing mL/min Estimated GFR (MDRD) ml/min Glucose (74-106) mg/dL Calcium (8.5-10.1) mg/dL Magnesium (1.8-2.4) mg/dL Total Bilirubin (0.2-1.0) mg/dL AST (15-37) IU/L ALT (14-63) IU/L Alkaline Phosphatase (46-116) U/L Troponin I < 0.050 (0.000-0.056) ng/mL Total Protein (6.4-8.2) g/dL Albumin (3.4-5.0) g/dL Globulin (2.6-4.0) g/dL Albumin/Globulin Ratio (0.9-1.6) Result Diagrams: 08/16/19 15:00 08/16/19 15:00 Sepsis Event Note - Evaluation Sepsis Screening Result: No Definite Risk - Focused Exam Vital Signs: Vital Signs Temp Pulse Resp BP Pulse Ox 08/16/19 16:31 96 16 97/53 L 94 L 08/16/19 14:52 35.9 C L 93 16 93/70 101 H Date Exam was Performed: 08/16/19 Time Exam was Performed: 18:32 Problem List Initiated/Reviewed/Updated: Yes Orders Last 24hrs: Active Orders 24 hr Category Date Time Status Admission Status [Patient Status] [ADT] Stat ADT 08/16/19 17:16 Active EKG Documentation Completion [RC] STAT Care 08/16/19 15:16 Active Intake and Output Strict [RC] ASDIRECTED Care 08/16/19 17:45 Ordered Intake and Output [RC] QSHIFT Care 08/16/19 17:42 Ordered Oxygen Therapy [RC] PRN Care 08/16/19 17:42 Ordered RT Aerosol Therapy [RC] ASDIRECTED Care 08/16/19 17:43 Ordered Up ad Cathleen [RC] ASDIRECTED Care 08/16/19 17:41 Ordered VTE/DVT Education [RC] PER UNIT ROUTINE Care 08/16/19 17:42 Ordered Vital Signs [RC] Q4H Care 08/16/19 17:42 Ordered Regular Diet [DIET] Diet 08/16/19 Dinner Ordered B-TYPE NATRIURETIC PEPTIDE,BNP [CHEM] Routine Lab 08/16/19 17:45 Ordered CBC WITH AUTO DIFF [HEME] AM Lab 08/17/19 05:11 Ordered CBC WITH AUTO DIFF [HEME] AM Lab 08/18/19 05:11 Ordered COMPREHENSIVE METABOLIC PN,CMP [CHEM] AM Lab 08/17/19 05:11 Ordered COMPREHENSIVE METABOLIC PN,CMP [CHEM] AM Lab 08/18/19 05:11 Ordered DRUG SCREEN, URINE [URCHEM] Stat Lab 08/16/19 16:06 Ordered UA RFX KHADAR AND CULT IF INDIC [URIN] Stat Lab 08/16/19 16:06 Ordered Acetaminophen [Tylenol] Med 08/16/19 17:41 Ordered 650 mg PO Q4H PRN Albuterol [Proventil Neb Soln] Med 08/16/19 17:41 Ordered 2.5 mg NEB Q2H PRN Heparin Sodium Med 08/16/19 17:45 Ordered 5,000 units SUBCUT Q8H Ondansetron [Zofran ODT] Med 08/16/19 17:41 Ordered 4 mg PO Q4H PRN Ondansetron [Zofran] Med 08/16/19 17:41 Ordered 4 mg IVPUSH Q4H PRN Pantoprazole [ProTONIX] Med 08/17/19 09:00 Ordered 40 mg PO DAILY Sodium Chloride 0.9% [Normal Saline] 1,000 ml Med 08/16/19 17:00 Active IV ASDIRECTED Sodium Chloride 0.9% [Normal Saline] 1,000 ml Med 08/16/19 16:30 Active IV STAT Resuscitation Status Routine Resus Stat 08/16/19 17:41 Ordered Medication Orders Acetaminophen (Tylenol) 650 mg PO Q4H PRN PRN Reason: Pain (Mild 1-3)/fever Albuterol (Proventil Neb Soln) 2.5 mg NEB Q2H PRN PRN Reason: Shortness Of Breath/wheezing Heparin Sodium (Porcine) (Heparin Sodium) 5,000 units SUBCUT Q8H JOSUE Sodium Chloride (Normal Saline) 1,000 mls @ 999 mls/hr IV STAT JOSUE Last Admin: 08/16/19 16:30 Dose: 999 mls/hr Sodium Chloride (Normal Saline) 1,000 mls @ 1,000 mls/hr IV ASDIRECTED JOSUE Last Admin: 08/16/19 16:58 Dose: 1,000 mls/hr Ondansetron HCl (Zofran Odt) 4 mg PO Q4H PRN PRN Reason: nausea, able to take PO Ondansetron HCl (Zofran) 4 mg IVPUSH Q4H PRN PRN Reason: Nausea Pantoprazole Sodium (Protonix) 40 mg PO DAILY [facility] Assessment/Plan Comment:: A: 1. Acute kidney injury 2. Hypotension 3. Hypercalcemia 4. Erythrocytosis 5. PMH diastolic heart failure P: 1. Will continue maintenance fluids at 75 ml/hr LR for 1 liter. Recheck kidney function tomorrow. Holding blood pressure meds for now. Dispo: 1-2 days.
[2019-08-16] MEDS ORDERED: Lactated Ringers 1,000 ML IV SCH (18:45)
--- NOTE | 2019-08-16 21:50 | CT ---
INDICATION: Hit head 2 months prior TECHNIQUE: CT head without contrast. COMPARISON: None FINDINGS: CSF spaces: Within normal limits for age. Brain parenchyma: The hardwick-white differentiation is normal. No sign of mass, hemorrhage, or midline shift. Skull base and calvarium: The visualized paranasal sinuses and mastoid air cells demonstrate no acute or significant findings. The visualized orbits are grossly unremarkable. No skull fractures. IMPRESSION: Unremarkable noncontrast head CT. Dictated by Cristopher Dee MD @ 08/16/2019 9:49:25 PM Please note that all CT scans at this facility use dose modulation, iterative reconstruction, and/or weight-based dosing when appropriate to reduce radiation dose to as low as reasonably achievable. Dictated by: Cristopher Dee MD @ 08/16/2019 21:49:31 (Electronically Signed)
[2019-08-16] MEDS: Heparin Sodium 5,000 Units/ML Vial SUBCUT SCH (21:51)
[2019-08-16] MEDS ORDERED: Sodium Chloride 0.9% 1,000 ML IV ONE (22:57)
[2019-08-16 23:28] LABS: CARBON DIOXIDE,CO2 31.4 mmol/L (21.0-32.0); POTASSIUM,K 4.7 mmol/L (3.5-5.1)
--- NOTE | 2019-08-17 00:11 | PCM.SN ---
- Free Text/Narrative Note: Nursing called stated patient admitted to falling and hitting head at home several days ago. CT head was ordered and is negative for acute pathology. Nursing also noted concern of slow capillary refill of legs. On my exam capillary refill is slow, legs are cool but are normal complexion without edema. He denies any leg pain and has no complaints. Pedal pulses present bilaterally, Will continue with fluid resuscitation. Patient does not appear septic, repeat labs show no leukocytosis and normal lactic acid.
[2019-08-17] MEDS: Heparin Sodium 5,000 Units/ML Vial SUBCUT SCH (02:02)
[2019-08-17 04:30] VITALS: PULSE 96
[2019-08-17 05:22] VITALS: BP 94/84
[2019-08-17] MEDS ORDERED: Pantoprazole 40 MG Tab.CR PO SCH (09:00)
== END 2019-08-17 04:35 | disposition left against medical advice (07) ==
LOC: MW.ED 14:34 → MW.MS 17:16
PROVIDERS: ADMIT Internal Medicine; ATTEND Internal Medicine
DX: N17.9 Acute kidney failure, unspecified (principal); I95.9 Hypotension, unspecified; E83.52 Hypercalcemia; E86.1 Hypovolemia; I50.30 Unspecified diastolic (congestive) heart failure; D75.1 Secondary polycythemia; Z79.899 Other long term (current) drug therapy; Z87.891 Personal history of nicotine dependence
CPT/HCPCS: 36415; 70450; 71045; 80048; 80053; 80305; 81003; 83605; 83735; 83880; 84484; 85007; 85025; 85027; 93005; 96360; 96361; 99285; J1644; J7030; J7120; 96372; G0378

== ENCOUNTER 2024-06-12 07:52 | Emergency (ER) | payer MEDICARE, MEDICAID ==
[2024-06-12] MEDS ORDERED: Sodium Chloride 0.9% 2.5 ML Syringe FLUSH PRN (08:03)
[2024-06-12] MEDS ORDERED: Sodium Chloride 0.9% 10 ML Syringe FLUSH PRN (08:03)
[2024-06-12] MEDS ORDERED: Norepinephrine Bit/D5W Premix 0 ML ONE (08:35)
[2024-06-12 09:10] LABS: BASOPHILS ABSOLUTE AUTO 0.04 K/uL (0.00-0.20); BASOPHILS PERCENT AUTO 0.5 % (0.0-1.0); EOSINOPHILS ABSOLUTE AUTO 0.01 K/uL (0.00-0.45); EOSINOPHILS PERCENT AUTO 0.1 % (0.0-6.0); HEMOGLOBIN 16.9 g/dL (14.0-18.0); IMMATURE GRAN ABSOLUTE AUTO 0.03 K/uL (0.00-0.05); IMMATURE GRAN PERCENT AUTO 0.3 % (0.0-0.4); LYMPHOCYTES PERCENT AUTO 10.3 % (24.0-44.0); MEAN CORPUSCULAR HEMOGLOBIN 34.6 pg (28.0-32.0); MEAN CORPUSCULAR HGB CONC 35.2 g/dL (32.0-36.0); MEAN CORPUSCULAR VOLUME 98.2 fL (83.0-99.0); MEAN PLATELET VOLUME 9.7 fL (9.4-12.4); MONOCYTES ABSOLUTE AUTO 0.87 K/uL (0.00-0.80); MONOCYTES PERCENT AUTO 9.9 % (0.0-8.0); NEUTROPHILS PERCENT AUTO 78.9 % (41.0-71.0); NRBC ABSOLUTE 0.24 K/uL (0.00-0.02); NRBC PERCENT 2.7 /100WBC (0.0-0.2); PLATELET COUNT,PLT 122 K/uL (150-400); RED BLOOD CELL COUNT 4.89 M/uL (4.52-5.90); WHITE BLOOD CELL COUNT,WBC 8.75 K/uL (3.9-11.3)
[2024-06-12] MEDS: Furosemide 40 MG/4 ML VIAL IV ONE (09:10)
[2024-06-12] MEDS: Piperacillin/Tazobactam 4.5 GM in Sodium Chloride 0.9% 100 ML IV ONE (09:10)
[2024-06-12] MEDS: VANCOmycin 1.5 GM in Sodium Chloride 0.9% 250 ML IV ONE (09:12)
[2024-06-12 09:24] LABS: BICARBONATE,ARTERIAL 15 mEq/L (22-26); PCO2 ARTERIAL 21 mmHG (35-45); PO2 ARTERIAL 103 mmHG (80-105)
[2024-06-12 09:27] LABS: APPEARANCE,URINE SLT CLOUDY; BILIRUBIN,URINE MODERATE (NEGATIVE); COLOR,URINE DARK YELLOW; GLUCOSE,URINE NEGATIVE (NEGATIVE); KETONES,URINE TRACE mg/dL (NEGATIVE); LEUKOCYTE ESTERASE,URINE NEGATIVE (NEGATIVE); NITRITE,URINE NEGATIVE (NEGATIVE); OCCULT BLOOD,URINE SMALL (NEGATIVE); PH,URINE 5.5 (5.0-8.0); PROTEIN,URINE >=300 mg/dL (NEGATIVE)
[2024-06-12 09:32] LABS: EPITHELIAL CELLS,URINE MODERATE (NONE-FEW)
[2024-06-12 09:33] LABS: A/G RATIO 0.7 (0.9-1.6); ALANINE AMINOTRANSFERASE,ALT 27 IU/L (14-63); ALBUMIN 2.9 g/dL (3.4-5.0); ALKALINE PHOSPHATASE 162 U/L (46-116); ASPARTATE AMNIOTRANSFERASE,AST 45 IU/L (15-37); BILIRUBIN TOTAL 4.2 mg/dL (0.2-1.0); BLOOD UREA NITROGEN,BUN 46 mg/dL (7.0-18.0); CALCIUM 10.4 mg/dL (8.5-10.1); CARBON DIOXIDE,CO2 15.6 mmol/L (21.0-32.0); CHLORIDE,CL 98 mmol/L (98-107); CREATININE 2.8 mg/dL (0.8-1.3); EST CRCL DRUG DOSING (CG) 28.97 mL/min; GLUCOSE RANDOM 72 mg/dL (74-106); LIPASE 16 U/L (16-77); POTASSIUM,K 5.3 mmol/L (3.5-5.1); SODIUM,NA 133 mmol/L (136-148)
[2024-06-12 09:33] LABS: AMORPHOUS SEDIMENT,URINE MODERATE (NEGATIVE); BACTERIA,URINE 1+ (NEGATIVE); MUCUS,URINE LIGHT (NONE-MOD)
[2024-06-12 09:34] LABS: ESTIMATED GFR 25 mL/min (>60)
[2024-06-12 09:36] LABS: ETHANOL BLOOD MEDICAL < 3.0 mg/dL; LACTIC ACID 5.8 mmol/L (0.4-2.0)
[2024-06-12] MEDS: LORazepam 2 MG/ML SDV IVPUSH ONE (09:46)
[2024-06-12 10:31] VITALS: BP 124/92; PULSE 118
== END 2024-06-12 14:02 ==
LOC: MW.ED 07:52
DX: I50.9 Heart failure, unspecified (principal); R57.0 Cardiogenic shock; R06.02 Shortness of breath; R74.02 Elevation of levels of lactic acid dehydrogenase [LDH]; R79.89 Other specified abnormal findings of blood chemistry; R68.89 Other general symptoms and signs; Z79.84 Long term (current) use of oral hypoglycemic drugs; Z79.899 Other long term (current) drug therapy; Z75.8 Other problems related to medical facilities and other health care
CPT/HCPCS: 36415; 36600; 51702; 71045; 71250; 74176; 80053; 80307; 81001; 82803; 83605; 83690; 83880; 84484; 85025; 87040; 93005; 96365; 96366; 96368; 96375; 99285; J1940; J2060; J2543; J3371; J3490; J7050